=== PATIENT | male | born 1975 | race African-American/Black ===

== ENCOUNTER → 2018-04-12 12:00 | Outpatient (CLI) | payer OTHER, SELFPAY ==
--- NOTE | 2018-04-12 12:09 | XR_ITS ---
XR foot RT min 3V HISTORY: Generalized right foot pain ITS.REASON: RT FOT PAIN ORDERING PHYSICIAN: Silvino Valencia PATIENT AGE: 42 years COMPARISON: None FINDINGS: No fracture or dislocation. No lytic or blastic change. There is normal mineralization.. The joint spaces are well-preserved. No significant degenerative/arthritic changes. No erosive changes evident. IMPRESSION: Negative, no acute finding
== END ==
PROVIDERS: PCP Family Medicine; Visit Provider Orthopaedic Surgery Adult Reconstructive Orthopaedic Surgery
DX: M79.671 Pain in right foot (principal)
CPT/HCPCS: 73630

== ENCOUNTER → 2020-02-04 11:24 | Outpatient (CLI) | payer BC, SELFPAY ==
[2020-02-05 14:14] LABS: Covid-19 Nasal PCR Sendout Lex NOT DETECTED
== END ==
PROVIDERS: Visit Provider Urology
DX: Z03.818 Encounter for observation for suspected exposure to other biological agents ruled out (principal)
CPT/HCPCS: U0004

== ENCOUNTER 2020-02-06 07:56 | Day surgery (SDC) | payer BC, SELFPAY ==
--- NOTE | 2020-02-03 09:16 | SUR.PREOP ---
02/03/2020 @ 0916--PHONE CALL MADE TO PATIENT. PATIENT UNDERSTANDS THAT LAB WORK AND COVID TESTING NEEDS TO BE COMPLETED @ 1100 ON 02/04/2020. PATIENT UNDERSTANDS IF LAB WORK AND COVID-19 TESTS ARE NOT COMPLETED BY 12PM ON THAT DATE, THE SURGERY SCHEDULED WILL BE CANCELLED AND RESCHEDULED FOR ANOTHER TIME.
[2020-02-06 08:31] VITALS: BMI 28.3
[2020-02-06 08:32] VITALS: BP 120/71; PULSE 77; RESP 20; TEMP 36.5; O2SAT 95
[2020-02-06 10:15] VITALS: BP 134/96; PULSE 74; RESP 18; TEMP 36.4; O2SAT 100
--- NOTE | 2020-02-06 15:42 | HMH.OPNOTE ---
Date of procedure: 02/06/20 Pre-op Diagnosis:: Sterilization Post-op Diagnosis:: Sterilization Procedure performed:: Vasectomy Surgeon:: Alex Becerril MD Anesthesia: local Estimated blood loss (mL): 3 Clinical Note:: 44-year-old white male recently seen for vasectomy consultation in the office presents for the procedure today. Operative findings:: Normal testicular exam and uneventful procedure. Operative note:: Patient taken to the operating room after informed consent was obtained. On the stretcher he was prepped and draped in the standard surgical fashion testicular and scrotal examination were normal. The left vas was grasped and brought up to the midline raphae. Local anesthetic was infiltrated under the skin and around the left vas. Incision was then made in the skin and the basal sheath was grasped with a tenaculum and brought up through the incision. The basal sheath was then incised and the vas proper was brought through the sheath and the adventitia and vascular structures were dissected away from the vas. One clip was placed distally and 2 clips proximally on the vas. A 1 cm segment of the vas was then excised and the basal lumen was cauterized with the pen cautery. Hemostasis achieved of the surrounding structures including the area of the basal artery. Left vas was dropped back into the left hemiscrotum the right vas was brought up to the same incision and local anesthetic was placed in and around the right vas. The right vas was grasped with the tenaculum and brought up through the incision. The basal sheath was incised and the vas proper was dissected away from the surrounding tissue. As was clipped doubly on the proximal side and once on the distal side. A 1 cm segment was excised and the ends of the vasa lumen were cauterized and hemostasis achieved. The right vas was dropped back into the right hemiscrotum and a 3-0 chromic was placed into the skin in a horizontal mattress fashion. Sterile dressing applied as well as a jockstrap. The patient tolerated procedure well there are no complications. Condition: stable Disposition: same day Specimens:: None Complications:: None
== END 2020-02-06 10:15 | disposition home or self-care (01) ==
LOC: OUTP 07:57
PROVIDERS: PCP Family Medicine; Visit Provider Urology
PROC: (CPT 55250; principal; 2020-02-06 09:30)
DX: Z30.2 Encounter for sterilization (principal)
CPT/HCPCS: 55250

== ENCOUNTER 2020-06-22 12:30 | Emergency (ER) | payer BC, SELFPAY ==
[2020-06-22 13:40] VITALS: BP 146/88; PULSE 80; RESP 20; TEMP 36.8; O2SAT 100; BMI 26.6
--- NOTE | 2020-06-22 13:47 | HMH.EDUTC ---
[facility] [place] Disposition Clinical Impression: Encounter for laboratory testing for COVID-19 virus Disposition: Home, Self-Care Condition on Discharge: Good Instructions: Preventing the Spread of Coronavirus Discharge Instructions Additional Instructions: You was tested for today for COVID19 your test result should be back tomorrow or , you may call back in the evening tomorrow or evening to see if your test results are back and the result You was given a handout with instructions for Self Quarantine and Self isolation for while you wait on test results and what to do if they are positive Return if needed No work until negative COVID test Referrals: Heriberto Ruiz MD [Primary Care Provider] - As needed Forms: Work/School Release Time of Disposition: 13:50 Medical Decision Making - Dandy Inquiry Pt receiving controlled substance: No Dandy was queried for this patient: No Vital Signs: 06/22/20 13:40 Temperature 98.2 F Temperature Source Oral Pulse Rate [Right Brachial] 80 Respiratory Rate 20 Blood Pressure [Right Arm] 146/88 H Blood Pressure Mean [Right Arm] 107 Blood Pressure Source [Right Arm] Automatic Cuff Blood Pressure Position [Right Arm] Sitting 02 Sat by Pulse Oximetry 100 Oxygen Delivery Method Room Air [facility] [place] HPI - General Stated complaint: exposed to covid Time Seen by Provider: 06/22/20 13:48 Mode of Arrival: Ambulatory Source of Information: Patient Limitations: No Limitations Description of Symptoms (Recalled from Triage Doc. by RN): PATIENT NEEDING COVID TEST. EXPOSED TO COWORKER WHO TESTED POSITIVE YESTERDAY, DENIES SYMPTOMS HEENT Symptoms (Recalled from RN notes): No Resp Symptoms (Recalled from RN notes): No Skin Symptoms (Recalled from RN notes): No MS Symptoms (Recalled from RN notes): No Functional Status (Recalled from RN notes): WNL - History of Present Illness Provider Complaint: Patient states that he was sent from his work place to get tested for COVID due to recent exposure to another employee that was sick last week and tested postive for COVID yesterday States that he has not had any symptoms - Related Data Home Medications Medication Instructions Recorded Confirmed No Known Home Medications 01/16/20 02/06/20 Allergies Allergy/AdvReac Type Severity Reaction Status Date / Time No Known Allergies Allergy Verified 06/22/20 13:42 - Worker's Comp Is this a Worker's Comp case?: No [facility] History - Hepatitis A Screen Drug use history?: No High risk sexual behaviors?: No History of sexually transmitted infection?: No Currently employed?: No Childcare worker?: No Do you have indoor plumbing?: Yes Do you have electricity?: Yes Attestation statement:: This patient has been screened for Hepatitis A risk factors. Medical History: Denies:: Cancer, Diabetes Mellitus Type 1, Diabetes Mellitus Type 2, Internal Pacemaker, MRSA, Seizures Laterality Cases: Right: Other Other Surgeries: Yes: No Previous Surgery. No: Pacemaker Amputation: No Fractures: No Comment: cyst removed from wrist and cyst removed from ear - Social History Smoking Status: Current every day smoker Tobacco Type: cigarettes # Packs/Day (cigarettes): 1 #Yrs smoked (if former smoker): 15 Alcohol Intake: never Alcohol Intake Frequency:: holidays/special occasions only Substance Use Type: marijuana Occupational Status: other Housing: house Family Hx:: No significant family history ROS Obtained: Yes All systems reviewed & no additional complaints, Yes Systems reviewed as appropriate & no additional complaints - Constitutional Constitutional: Reports system reviewed and no additional complaints, except as docu, Denies body ache, Denies chills, Denies fever(s), Denies headache(s) - ENT Ears, Nose, Mouth, and Throat: Denies sinus pressure, Denies sore throat - Cardiovascular Cardiovascular: Reports system reviewed and no additional complaints, except as docu - Respiratory Respir
[2020-06-22 13:58] VITALS: BP 146/88; PULSE 80; RESP 20; TEMP 36.8; O2SAT 100
[2020-06-23 16:22] LABS: Covid-19 Nasal PCR Sendout Lex Not Detected
== END 2020-06-22 14:00 | disposition home or self-care (01) ==
PROVIDERS: Emergency Provider Nurse Practitioner; PCP Family Medicine
DX: Z20.828 Contact with and (suspected) exposure to other viral communicable diseases (principal)
CPT/HCPCS: 99201; U0004

== ENCOUNTER → 2020-07-14 12:06 | Outpatient (CLI) | payer BC, SELFPAY | PROVIDERS: PCP Family Medicine; Visit Provider Family Medicine | DX: Z03.818 Encounter for observation for suspected exposure to other biological agents ruled out (principal) | CPT/HCPCS: U0003 ==

== ENCOUNTER → 2020-10-04 15:38 | Outpatient (CLI) | payer BC, SELFPAY ==
--- NOTE | 2020-10-04 | XR_ITS ---
PROCEDURE: XR CHEST PORTABLE CLINICAL HISTORY: Cough and sore throat, Covid19 testing COMPARISON: No exams were available for comparison FINDINGS: The cardiomediastinal silhouette and pulmonary vascularity are within normal limits. The lungs are clear without infiltrates, suspicious nodules, or pleural effusions. No acute bony abnormalities. 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 IMPRESSION: No acute findings. Dictated by: Rhys Mars MD 10/04/2020 16:08 Rhys Mars MD in [place] 10/04/2020 16:08
== END ==
PROVIDERS: PCP Family Medicine; Visit Provider Family Medicine
DX: Z20.822 Contact with and (suspected) exposure to COVID-19 (principal); U07.1 COVID-19; R05 Cough; R53.81 Other malaise
CPT/HCPCS: 71045; U0003

== ENCOUNTER 2021-06-19 18:59 | Emergency (ER) | payer BC, SELFPAY ==
[2021-06-19 20:00] VITALS: BP 126/79; PULSE 92; RESP 18; TEMP 36.9; O2SAT 96; BMI 26.6
--- NOTE | 2021-06-19 20:08 | XR_ITS ---
PROCEDURE INFORMATION: Exam: XR Right Shoulder Exam date and time: 06/19/2021 8:08 PM Age: 45 years old Clinical indication: Pain; Shoulder; Right; Additional info: Pain no known recent trauma TECHNIQUE: Imaging protocol: XR Right shoulder. Views: 2 or more views. COMPARISON: CR XR CHEST PORTABLE 10/04/2020 4:11 PM FINDINGS: Bones/joints: [id number] degenerative changes at the AC joint with an inferiorly projecting osteophyte. Soft tissues: Normal. Question loose body projecting over scapula. IMPRESSION: AC degenerative changes as above
--- NOTE | 2021-06-19 20:30 | HMH.EDUTC ---
[facility] [place] Disposition Clinical Impression: Tendinopathy of right shoulder Right shoulder pain Qualifiers: Chronicity: acute Qualified Code(s): M25.511 - Pain in right shoulder Disposition: Home, Self-Care Condition on Discharge: Good Instructions: Shoulder Tendinopathy, DI for Shoulder Pain Additional Instructions: Rest the extremity, apply ice for 15 minutes as tolerated three or four times per day, Wear the aicha wrap for compression, Take ibuprofen for pain. I sent in a prescription to your pharmacy. Follow up with Dr. Devi (orthopedics). Sometimes there can be fractures that don't show up well on the first set of x-rays. So, you should follow up if you continue to have symptoms. I put in a referral but you need to call his office and schedule an appointment. Follow up with your regular doctor. GO TO THE ER FOR ANY WORSENING SYMPTOMS Prescriptions: Cyclobenzaprine HCl [Cyclobenzaprine 10mg Tab] 10 mg PO BIDP PRN #20 tab PRN Reason: Muscle Spasm Transmission Status: Received by [facility] methylPREDNISolone [Medrol] 4 mg PO DIRECTED 6 Days #21 packet Transmission Status: Received by [facility] Referrals: Heriberto Ruiz MD [Primary Care Provider] - Ronny Devi MD [Staff Physician] - Time of Disposition: 20:40 Medical Decision Making - Medical Records Medical records reviewed: No: I reviewed the patient's medical records. - Dandy Inquiry Pt receiving controlled substance: No Vital Signs: 06/19/21 20:00 06/19/21 20:59 Temperature 98.5 F 98.5 F Temperature Source Oral Pulse Rate 92 H Pulse Rate [Right Brachial] 92 H Respiratory Rate 18 18 Blood Pressure 126/79 Blood Pressure [Right Arm] 126/79 Blood Pressure Mean [Right Arm] 94 Blood Pressure Source [Right Arm] Automatic Cuff Blood Pressure Position [Right Arm] Sitting 02 Sat by Pulse Oximetry 96 Oxygen Delivery Method Room Air Orders (Tests/Meds): ED MEDICATIONS Discontinued Medications Generic Name Dose Route Start Last Admin Trade Name Freq PRN Reason Stop Dose Admin Ketorolac Tromethamine 60 mg 06/19/21 20:40 06/19/21 20:45 Ketorolac 60mg/2ml Vial IM 06/19/21 20:41 60 mg ONCE ONE Administration Methylprednisolone Sodium Succinate 125 mg 06/19/21 20:40 06/19/21 20:45 Methylprednisolone Sod Succ 125mg Vial IM 06/19/21 20:41 125 mg ONCE ONE Administration ORDERS Category Date Time Status Shoulder XR right miminum 2 views [XR shoulder RT min Exams 06/19/21 20:08 Taken 2V] Stat - Radiology Data #1 Image(s): Shoulder Image Reviewed: Yes I reviewed the patient's radiology image, Yes I have reviewed radiologist's interpretation Preliminary Findings: No Fracture Seen [facility] [place] HPI - General Stated complaint: R shoulder pain no accident Time Seen by Provider: 06/19/21 20:31 - History of Present Illness Provider Complaint: He states that he has had right shoulder pain flare ups off and on for the past several years. He denies any recent injury. He did injure his shoulder several years ago, but it seemed like it got ok, then he started having these flare ups. Raising the arm over his head makes it worse. He also has numbness and tingling down his arm at times when his pain is very bad. - Related Data Previous Rx's Medication Instructions Recorded Cyclobenzaprine HCl 10 mg PO BIDP PRN #20 tab 06/19/21 [Cyclobenzaprine 10mg Tab] methylPREDNISolone [Medrol] 4 mg PO DIRECTED 6 Days #21 06/19/21 packet Allergies Allergy/AdvReac Type Severity Reaction Status Date / Time No Known Allergies Allergy Verified 06/22/20 13:42 [facility] History - Hepatitis A Screen Attestation statement:: This patient has been screened for Hepatitis A risk factors. I have reviewed the patient's past medical history: Yes Medical History: Denies:: Cancer, Diabetes Mellitus Type 1, Diabetes Mellitus Type 2, Internal Pacemaker, MRSA, Seizures Laterality C
[2021-06-19 20:59] VITALS: BP 126/79; PULSE 92; RESP 18; TEMP 36.9; O2SAT 96
== END 2021-06-19 21:00 | disposition home or self-care (01) ==
PROVIDERS: Emergency Provider Nurse Practitioner Family; PCP Family Medicine
DX: M77.8 Other enthesopathies, not elsewhere classified (principal)
CPT/HCPCS: 73030; 96372; 99202; G0463

== ENCOUNTER 2021-07-06 10:05 | Outpatient (RCR) | payer BC, SELFPAY ==
--- NOTE | 2021-07-06 11:58 | HMH.OTOPEV ---
OT Inpatient Evaluation Rehab OT Outpatient Eval Start: 07/06/21 11:14 Freq: Status: Active Protocol: Document 07/06/21 11:15 USHAFRANCHESCA (Rec: 07/06/21 11:25 KHURRAM [id number]) Electronically Signed By Kasandra Hernandez OT 07/06/21 11:15 Outpatient Therapy Subjective History Subjective History 45 year old male referred to skilled OP OT services for R shoulder tendiopathy. Patient verablize having pain for the past two years with pain getting worse. Patient stated to have occasional tingling and numbness in all digits. R shoulder pain limits work performance and leisure task of sports on daily basis. Patient currently on light duty work performance at this time to decrease pain levels. X-xay completed Chief Complaint Pain,Weakness Symptom Type Ache,Throb,Sharp Symptoms Relieved By Ice,OTC Meds Symptoms Aggravated By Physical Activity Prior Functional Limitations None Current Functional Limitations Reaching,Lifting Level of pain today (0-10) 5 Pain scale - at its best (0-10) 5 Pain scale - at its worst (0-10) 9 Shoulder/Elbow Eval Shoulder Objective Measurements Shoulder ROM Right Shoulder Abduction Active Range of 115 Motion (degrees) Shoulder Flexion Active Range of Motion 100 (degrees) Query Text: Shoulder External Rotation Active Range 30 of Motion (degrees) Shoulder Internal Rotation Active Range 25 of Motion (degrees) pain with active ROM shoulder exam right standard Shoulder MMT Shoulder Abduction Strength Grade 3- Fair- Shoulder Extension Strength Grade 3- Fair- Shoulder Flexion Strength Grade 3- Fair- Shoulder Horizontal Abduction Strength 3- Fair- Grade Infraspinatus/Teres Minor Strength Grade 3- Fair- Shoulder External Rotation Strength 3- Fair- Grade Shoulder Internal Rotation Strength 3- Fair- Grade Shoulder Special Tests impingement sign present shoulder exam right standard Shoulder Empty Can (Supraspinatus) Test Positive Right Shoulder Garcia-Dewey Impingement Positive Right Test Shoulder Neer Impingement Test Positive Right Elbow Objective Measurements OT Outpatient Assessment Impairments Problems/Impairments Impaired Range of Motion,
== END 2021-07-06 10:10 | disposition home or self-care (01) ==
LOC: OT 10:05
PROVIDERS: PCP Family Medicine; Visit Provider Family Medicine
DX: M67.911 Unspecified disorder of synovium and tendon, right shoulder (principal)
CPT/HCPCS: 97165

== ENCOUNTER → 2021-07-27 16:50 | Outpatient (CLI) | payer BC, SELFPAY ==
--- NOTE | 2021-07-27 16:50 | MR_ITS ---
PROCEDURE INFORMATION: Exam: MR Right Upper Extremity Joint Without Contrast; Shoulder Exam date and time: 07/27/2021 4:50 PM Age: 45 years old Clinical indication: Pain; Shoulder; Right; Patient HX: Evaluate for a rotator cuff tear TECHNIQUE: Imaging protocol: MR of the Right upper extremity without contrast. Exam focused on the shoulder. COMPARISON: CR XR SHOULDER RT MIN 2V 06/19/2021 8:04 PM FINDINGS: Bones and cartilage: Motion artifact limits this study. 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 Cystic and edematous change within the bone marrow of the acromion process and lateral aspect of the clavicle, likely contributed by arthropathy. A minimal effusion is noted within this joint. Joint spaces: Small glenohumeral joint effusion. A subcentimeter suggested hypointense loose body is suggested within fluid in the subscapularis recess. Glenoid labrum: There is a small linear suggested tear of the posterior aspect of the labrum, as visualized on series 3, image 14. Labral tear cannot be excluded. Bursae: Fluid is noted within the subcoracoid bursa, with a 1.1 cm hypointense loose body. 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 Minimal fluid within the subdeltoid/subacromial bursa. Supraspinatus tendon: See below. Infraspinatus tendon: Tendinosis and partial tears visualized of the supraspinatus and infraspinatus tendons. Subscapularis tendon: No evidence of tear. Teres minor tendon: No evidence of tear. Tendon of biceps brachii: Increased fluid within the bicipital tendon sheath, consistent with tenosynovitis. Glenohumeral ligaments: No evidence of tear of the inferior glenohumeral ligament. Muscles: No visualized acute abnormality. Soft tissues: Unremarkable. IMPRESSION: 1. Tendinosis and partial tears visualized of the supraspinatus and infraspinatus tendons. 2. Increased fluid within the bicipital tendon sheath, consistent with tenosynovitis. 3. 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 Cystic and edematous change within the bone marrow of the acromion process and lateral aspect of the clavicle, likely contributed by arthropathy. 4. Fluid is noted within the subcoracoid bursa, with a 1.1 cm hypointense loose body. 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 5. Small glenohumeral joint effusion. 6. Suggested labral tear(s). 7. Minimal fluid within the subdeltoid/subacromial bursa. 8. Additional findings described above.
== END ==
PROVIDERS: PCP Family Medicine; Visit Provider Orthopaedic Surgery
DX: M25.511 Pain in right shoulder (principal); G89.29 Other chronic pain
CPT/HCPCS: 73221

== ENCOUNTER → 2021-11-02 16:58 | Outpatient (CLI) | payer BC, SELFPAY | PROVIDERS: PCP Family Medicine; Visit Provider Nurse Practitioner | DX: U07.1 COVID-19 (principal) | CPT/HCPCS: C9803; U0003; U0005 ==

== ENCOUNTER 2021-12-12 17:15 | Emergency (ER) | payer BC, SELFPAY ==
[2021-12-12 17:15] VITALS: BP 120/94; PULSE 93; RESP 18; TEMP 36.8; O2SAT 100; BMI 28.8
--- NOTE | 2021-12-12 17:32 | PC.NURSE ---
ED MD at
--- NOTE | 2021-12-12 17:43 | HMH.EDGENADL ---
ED Disposition Clinical Impression: Left medial knee pain Disposition: Home, Self-Care Condition on Discharge: Good Additional Instructions: Please take naproxen twice a day for pain, you can also apply topical ointment to the knee for pain, please get a knee brace in order to help with knee stability. To the ED with any new or worsening symptoms. Prescriptions: Naproxen [Naproxen 500mg tab] 500 mg PO BID #20 tab Transmission Status: Pending to [facility] Referrals: Tessa Lewis APRN [Primary Care Provider] - - Critical Care Critical Care Time: No Attestation: On , the high probability of a clinically significant, sudden or life threatening deterioration of the following system(s) required my full and direct attention, intervention and personal management. The time I documented below is in addition to time spent performing reported procedures but includes the following listed in this critical care notation. Medical Decision Making - Medical Records Medical records reviewed: Yes: I reviewed the patient's medical records. - Dandy Inquiry Pt receiving controlled substance: No Vital Signs: 12/12/21 17:15 Temperature 98.3 F Temperature Source Oral Pulse Rate [Right Radial] 93 H Respiratory Rate 18 Blood Pressure [Left Arm] 120/94 H Blood Pressure Mean [Left Arm] 102 Blood Pressure Source [Left Arm] Automatic Cuff Blood Pressure Position [Left Arm] Sitting 02 Sat by Pulse Oximetry 100 Oxygen Delivery Method Room Air Orders (Tests/Meds): ED MEDICATIONS Discontinued Medications Generic Name Dose Route Start Last Admin Trade Name Freq PRN Reason Stop Dose Admin Ketorolac Tromethamine 30 mg 12/12/21 17:41 Ketorolac 30mg/Ml Vial IM 12/12/21 17:42 ONCE ONE Ketorolac Tromethamine 30 mg 12/12/21 17:40 Ketorolac 30mg/Ml Vial IV 12/12/21 17:41 ONCE ONE Medical Decision Narrative: Patient is a 46-year-old male presents the ED today for evaluation of left-sided knee pain, patient is well-appearing on initial evaluation, no acute distress, vital signs within normal limits and stable, differential patient's knee exam is broad including meniscal injury, medial ligament tear, ACL tear, patellar injury, no obvious deformity to the knee on exam, no instability of the knee joint and he is able to bear weight, given this and the acute onset today with standing up this is unlikely to be a septic knee, and I have discussed the symptoms with patient the patient for outpatient management, we do not need to obtain an x-ray at this time as there is no traumatic mechanism of injury, I will refer patient to Dr. Lerma's clinic who does sports medicine injuries, patient be able to see them in the outpatient setting, we will give him 30 mg of IM Toradol for inflammation, I discussed rest ice compression elevation therapy and will prescribe 500 mg of oral naproxen twice a day for patient taken over anti-inflammatory management. General Adult HPI - General Chief complaint: PAIN Stated complaint: left knee pain Time Seen by Provider: 12/12/21 17:20 Mode of Arrival: Ambulatory Limitations: No Limitations Description of Symptoms (Recalled from ER Triage Doc. by RN): Pt c/o left knee pain. States that he felt a pop this AM and it has been throbbing since. - History of Present Illness HPI narrative: Patient is a 46-year-old male patient who presents the ED today for further evaluation of left knee pain, states that this knee has been hurting since earlier today when he stood up and felt a pop in the medial aspect of the knee, states that he has not noticed much swelling of the knee but states that he does think it is more swollen than the right side. Patient states he has not had any fevers, no other pain radiating down the leg, but states that the knee is hurting a lot more in the last 30 minutes or so. Patient has had multiple prior knee injuries from playing football in the
[2021-12-12 17:55] VITALS: BP 120/94; PULSE 93; RESP 16; TEMP 36.7; O2SAT 100
== END 2021-12-12 17:55 | disposition home or self-care (01) ==
LOC: ER 18:00
PROVIDERS: Emergency Provider Student in an Organized Health Care Education/Training Program; PCP Nurse Practitioner Family
DX: M25.562 Pain in left knee (principal); F17.210 Nicotine dependence, cigarettes, uncomplicated
CPT/HCPCS: 96372; 99283

== ENCOUNTER 2021-12-23 08:04 | Day surgery (SDC) | payer BC, SELFPAY ==
[2021-11-02 12:20] VITALS: BMI 28.3
[2021-12-20 09:31] VITALS: BMI 28.3
[2021-12-23 08:23] VITALS: BP 154/93; PULSE 85; RESP 18; TEMP 36.2; O2SAT 99
--- NOTE | 2021-12-23 09:22 | HMH.ANESCL ---
[facility] Anesthesia Checklist - Patient Identification Patient Identification: Arm Band, Guardian - Structural Data Admitted From: Home Planned Operative Procedure/s: Colonoscopy Consent for Planned Operative Procedure(s) Verified: Yes Verified Documents: Surgical Consent - NPO Status Verified Time NPO: 00:00 - Airway Assessment C-Spine Mobility Assessed: Yes TMJ Mobility Assessed: Yes Dentition: Good Dentition - Neurological Assessment Level of Consciousness: Awake, Alert, Appropriate - Anesthesia Plan Anesthesia Risk discussed: Yes ASA Class: II Anesthesia Type: MAC [facility] History I have reviewed the patient's past medical history: Yes Medical History: Denies:: Cancer, Diabetes Mellitus Type 1, Diabetes Mellitus Type 2, Internal Pacemaker, MRSA, Seizures *Have you ever received a pneumonia vaccine?: No *Have you received a flu vaccine this season?: No Anesthesia experience/problems:: none Laterality Cases: Right: Other Other Surgeries: Yes: No Previous Surgery. No: Pacemaker Amputation: No Fractures: No - *Social History Last grade of school completed: Some college Smoking Status: Current every day smoker Tobacco Type: cigarettes # Packs/Day (cigarettes): 1 #Yrs smoked (if former smoker): 15 Alcohol Intake: current Alcohol Intake Frequency:: a few times a week Substance Use Type: marijuana *Occupational Status:: employed Housing: house Household Members: family *Travel in the last 8 weeks: None Family Hx:: No significant family history
[2021-12-23 09:32] VITALS: O2SAT 99
--- NOTE | 2021-12-23 10:04 | HMH.SCOPE ---
- Procedure: Date: 12/23/21 Patient Date of :: 1975 Procedure Performed:: Total colonoscopy to terminal ileum with polypectomy by biopsy and snare Indications:: Patient is a pleasant 46-year-old male. He is referred for screening colonoscopy. He did undergo previous colonoscopy about 5 or 6 years ago after a bout of colitis. Performing Provider:: James Miller MD Referring Provider:: Sanjuana Lewis Sedation:: MAC sedation Procedure:: Patient was taken to endoscopy procedure room. He was positioned in lateral decubitus position. Adequate intravenous sedation was achieved with anesthesia titration of propofol. Variable stiffness Olympus colonoscope was inserted via the anus. It was advanced to the cecum without difficulty. Colonic preparation was good. Ileocecal valve and appendiceal orifice were clearly identified. Colonoscope was advanced a short distance into the terminal ileum which appeared grossly normal. Colonoscope was slowly withdrawn through the colon with careful surveillance. In the sigmoid colon there was an extremely tiny diminutive polyp removed with cold biopsy forceps. At the rectosigmoid region there was a small hyperplastic appearing polyp removed with cold snare. He did have some rare sigmoid diverticulosis. Retroflexion within the rectum revealed nonpathologic internal hemorrhoids. Colonoscope was withdrawn. Findings:: Subtle hyperplastic appearing polyps as noted above Rare sigmoid diverticulosis Recommendations:: Repeat colonoscopy 5 to 10 years pending pathology Complications:: None immediately apparent Estimated blood obtained (mL): 1
[2021-12-23 10:05] VITALS: BP 105/64; PULSE 71; RESP 18; TEMP 36.1; O2SAT 94
[2021-12-23 10:15] VITALS: BP 136/92; PULSE 78; RESP 18; TEMP 36.1; O2SAT 99
[2021-12-23 10:25] VITALS: BP 122/77; PULSE 66; RESP 18; TEMP 36.1; O2SAT 100
[2021-12-23 10:35] VITALS: BP 129/85; PULSE 70; RESP 18; TEMP 36.1; O2SAT 100
== END 2021-12-23 10:35 | disposition home or self-care (01) ==
LOC: OUTP 08:05
PROVIDERS: PCP Nurse Practitioner Family; Visit Provider Surgery
PROC: 0DJD8ZZ Inspection of Lower Intestinal Tract, Via Natural or Artificial Opening Endoscopic (ICD-10-PCS; CPT 45385; principal; 2021-12-23 09:30)
DX: Z12.11 Encounter for screening for malignant neoplasm of colon (principal); K63.5 Polyp of colon; K57.30 Diverticulosis of large intestine without perforation or abscess without bleeding; Z72.0 Tobacco use; F12.90 Cannabis use, unspecified, uncomplicated
CPT/HCPCS: 45385

== ENCOUNTER → 2022-03-28 13:42 | Outpatient (CLI) | payer BC, SELFPAY ==
--- NOTE | 2022-03-28 13:46 | XR_ITS ---
FINAL REPORT CLINICAL HISTORY: shoulder pain COMPARISON: 06/19/2021 FINDINGS: RIGHT SHOULDER Three views were obtained. There is no acute fracture or dislocation. There is mild acromioclavicular and glenohumeral joint degenerative change. No soft tissue abnormality is identified. IMPRESSION: Mild degenerative changes without acute process. Reviewed, Interpreted and Dictated by James Glover III, MD Transcribed by Inés Corbett Authenticated and [facility]
== END ==
LOC: RAD 13:43
PROVIDERS: PCP Nurse Practitioner Family; Visit Provider Orthopaedic Surgery
DX: M25.511 Pain in right shoulder (principal)
CPT/HCPCS: 73030

== ENCOUNTER → 2022-04-03 13:01 | Outpatient (CLI) | payer BC, SELFPAY | PROVIDERS: PCP Nurse Practitioner Family; Visit Provider Orthopaedic Surgery | DX: M25.511 Pain in right shoulder (principal) ==

== ENCOUNTER → 2022-04-17 14:05 | Outpatient (CLI) | payer BC, SELFPAY ==
--- NOTE | 2022-04-17 14:05 | MR_ITS ---
FINAL REPORT TECHNIQUE: Multiplanar and multisequence imaging of the right shoulder was obtained without contrast. CLINICAL HISTORY: Shoulder pain. WEAKNESS IN ARM. LIMITED ROM. SYMPTOMS XYEARS. NO RECENT INJURY OR TRAUMA. FINDINGS: Bones and joints: There is no acute fracture, edema, or pathologic marrow replacement. Acromioclavicular joint degenerative disease is present and there is osteophytosis which narrows the supraspinatus outlet. Rotator cuff: There is a full-thickness supraspinatus tendon tear that extends to the anterior infraspinatus tendon. The more posterior infraspinatus fibers are intact. No biceps tendon dislocation is present. There is no fatty atrophy of the rotator cuff muscles. Labrum: There is a SLAP 2 tear of the superior labrum. The remainder of the labrum is intact The glenohumeral ligaments appear intact. The biceps tendon is within normal limits. No biceps tendon tear is identified. Other: There is a small joint effusion. There is a loose body in the subcoracoid bursa measuring 15 mm. There is a small loose body in the inferior joint measuring 5 mm. Remaining soft tissues are within normal limits. IMPRESSION: Full-thickness supraspinatus tear extending to the anterior infraspinatus tendon. Slap type 2 tear of the superior labrum. Degenerative joint disease. Loose bodies. Reviewed, Interpreted and Dictated by Bernie Mims MD Transcribed by Anil Cottrell Authenticated and [facility]
== END ==
PROVIDERS: PCP Nurse Practitioner Family; Visit Provider Orthopaedic Surgery
DX: M25.511 Pain in right shoulder (principal)
CPT/HCPCS: 73221

== ENCOUNTER 2022-05-03 09:07 | Emergency (ER) | payer BC, SELFPAY ==
[2022-05-03 09:40] VITALS: BP 151/91; PULSE 84; RESP 18; TEMP 36.7; O2SAT 98; BMI 25.9
--- NOTE | 2022-05-03 09:55 | HMH.EDUTC ---
[facility] [place] Clinical Impression: Viral upper respiratory tract infection with cough Disposition: Home, Self-Care Condition on Discharge: Good Instructions: Cough, Sore Throat, DI for COVID-19 (Suspected or Confirmed ), Preventing the Spread of Coronavirus Discharge Instructions Additional Instructions: *Monitor Temp, Over the counter Motrin or Tylenol as directed/as needed Tylenol every 4 hours and Motrin every 6 hours (as long as your family doctor has told you that you can take it) for fever or pain. and straight to ER if unable to lower temp less than 101.0 after medication given *Warm salt water gargles may help to soothe the throat *Throat Lozenges *Warm fluids like tea with honey may help to soothe the throat *Sleep elevated *Humidifier/Vaporizer Your throat swab was sent for culture. Those results are typically sent to your primary care. Be sure to follow up in 2-3 days with your family doctor/primary care physician if no improvement so they can review those result and treat if necessary. If you don?t have a primary care doctor, I recommend you get one but in the mean time, you will have to return to a walk in clinic Follow up IMMEDIATELY for new or worsening symptoms or no Noticeable improvement over the next 48-72 hours. 911 for difficulty breathing or swallowing You were tested for today for COVID19 your test result should be back in the next 24-48 hours, you may check your result on the [facility] My Health Portal Make sure to take your Vitamins Vit. C Vit D and Zinc if you can take them Referrals: Tessa Lewis APRN [Primary Care Provider] - As needed Forms: Work/School Release Time of Disposition: 10:05 Medical Decision Making - Dandy Inquiry Pt receiving controlled substance: No Dandy was queried for this patient: No Vital Signs: 05/03/22 09:40 Temperature 98.0 F Temperature Source Oral Pulse Rate [Left Brachial] 84 Respiratory Rate 18 Blood Pressure [Left Arm] 151/91 H Blood Pressure Mean [Left Arm] 111 Blood Pressure Source [Left Arm] Automatic Cuff Blood Pressure Position [Left Arm] Sitting 02 Sat by Pulse Oximetry 98 Oxygen Delivery Method Room Air - Lab Data Lab results reviewed: Yes: I reviewed the patient's lab results. Orders (Tests/Meds): ORDERS Category Date Time Status Covid-19 Nasal PCR ([facility]) Routine Lab 05/03/22 09:38 Received [facility] [place] HPI - General Stated complaint: strep/covid test Time Seen by Provider: 05/03/22 09:55 Mode of Arrival: Ambulatory Source of Information: Patient Limitations: No Limitations Description of Symptoms (Recalled from Triage Doc. by RN): PATIENT C/O COUGH, SORE THROAT, CONGESTION AND BODY ACHES. REQUESTING STREP AND COVID TEST HEENT Symptoms (Recalled from RN notes): Yes Resp Symptoms (Recalled from RN notes): Yes Skin Symptoms (Recalled from RN notes): No MS Symptoms (Recalled from RN notes): No Functional Status (Recalled from RN notes): WNL - History of Present Illness Provider Complaint: Patient states that he started feeling bad yesterday with sore throat, cough and feeling achy all over States that today he was still not feeling well today he would come in and get tested for strep throat and COVID - Related Data Previous Rx's Medication Instructions Recorded hydrocodone 5 mg-acetaminophen 325 2 tab PO Q6H PRN #4 tab 04/06/22 mg tablet Allergies Allergy/AdvReac Type Severity Reaction Status Date / Time No Known Allergies Allergy Verified 03/28/22 15:00 - Worker's Comp Is this a Worker's Comp case?: No [facility] History - Hepatitis A Screen Attestation statement:: This patient has been screened for Hepatitis A risk factors. I have reviewed the patient's past medical history: Yes Medical History: Denies:: Cancer, Diabetes Mellitus Type 1, Diabetes Mellitus Type 2, Internal Pacemaker, MRSA, Seizures Laterality Cases: Right: Other Other Surgeries: Yes: No Previous Surgery, Colonoscopy. No: Pacemaker Am
[2022-05-03 09:59] LABS: UTC Strep Screen (Rapid) Negative (Negative)
[2022-05-03 10:01] VITALS: BP 151/91; PULSE 84; RESP 18; TEMP 36.7; O2SAT 98
== END 2022-05-03 10:14 | disposition home or self-care (01) ==
PROVIDERS: Emergency Provider Nurse Practitioner; PCP Nurse Practitioner Family
DX: J06.9 Acute upper respiratory infection, unspecified (principal); R05.9 Cough, unspecified; J02.9 Acute pharyngitis, unspecified; R09.81 Nasal congestion; M79.10 Myalgia, unspecified site; F17.210 Nicotine dependence, cigarettes, uncomplicated
CPT/HCPCS: 87880; 99212; C9803; G0463; U0003; U0005

== ENCOUNTER 2022-12-01 15:01 | Emergency (ER) | payer BC, SELFPAY ==
[2022-12-01 15:10] VITALS: BP 155/97; PULSE 112; RESP 20; TEMP 36.9; O2SAT 97; BMI 29.7
--- NOTE | 2022-12-01 15:17 | EXP.UTC ---
Discharge Plan Disposition Patient Disposition: Home, Self-Care Condition: Good Prescriptions Prescriptions: New promethazine-DM 6.25-15 mg/5 mL Syrup 5 ml PO Q6H PRN (Reason: Cough) Qty: 240 0RF benzonatate [benzonatate] 100 mg capsule 100 mg PO TIDP PRN (Reason: Cough) Qty: 30 0RF methylprednisolone 4 mg Tablets,Dose Pack 4 mg PO DIRECTED Qty: 21 0RF amoxicillin-pot clavulanate 875-125 mg Tablet 1 tab PO Q12H Qty: 20 0RF Referrals Follow up/Referrals: Tessa Lewis APRN [Primary Care Provider] - See instructions Activity Restrictions/Add. Instructions Additional Instructions/Restrictions: Drink plenty of fluids. Take tylenol or ibuprofen for pain or fever. Take the medications as directed. Follow up with your regular doctor. GO TO THE ER FOR ANY WORSENING SYMPTOMS Don't start the oral steroids until tomorrow, since you had the shot here today. The cough medication (promethazine dm) will make you drowsy, so don't drive or operate heavy machinery after taking it. The tessalon perles (benzonatate) should help your cough during the day. It should not make you drowsy. Clinical Impressions Clinical Impression: Bronchitis, Sinusitis Stand Alone Forms Stand Alone Forms: Work/School Release Instructions Patient Instructions: DI for Sinusitis, DI for Acute Bronchitis Discharge ED Provider: Stan Cheng [facility] [place] HPI General Stated complaint: Cough, congestion, sore throat, drainage Time Seen by Provider: 12/01/22 15:17 History of Present Illness Provider Complaint: He states that for the past 3 days he has had chest congestion and sinus congestion. Related Data Previous Rx's Medication Instructions Recorded amoxicillin 875 mg-potassium 1 tab PO Q12H #20 tabs 12/01/22 clavulanate 125 mg tablet benzonatate 100 mg capsule 100 mg PO TIDP PRN Cough #30 caps 12/01/22 methylprednisolone 4 mg tablets in 4 mg PO DIRECTED #21 tabs 12/01/22 a dose pack promethazine-DM 6.25 mg-15 mg/5 mL 5 ml PO Q6H PRN Cough #240 mL 12/01/22 oral syrup Allergies Allergy/AdvReac Type Severity Reaction Status Date / Time No Known Allergies Allergy Verified 12/01/22 15:18 [facility] Disclaimer: The information contained in this section may have been updated after the patient was seen, as this information can be updated by other users. 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 current occupational exposures/hazards: No caffeine: Yes ROS Obtained: Yes All systems reviewed & no additional complaints except as documented Constitutional Constitutional: Reports chills and Reports fever(s) Eyes Eyes: Denies eye discharge ENT Ears, Nose, Mouth, and Throat: Reports as per HPI Cardiovascular Cardiovascular: Denies chest pain Respiratory Respiratory: Denies chest congestion and Reports cough Gastrointestinal Gastrointestingal: Reports nausea; Denies abdominal pain, constipation, cramping, diarrhea or vomiting Musculoskeletal Musculoskeletal: Denies arthralgias Integumentary/Breasts Skin/Breast: Denies rash Neurologic Neurologic: Denies paresthesias Physical Exam General General appearance: alert and in no apparent distress Head Head exam: atraumatic, normocephalic and normal inspection Eye Eye exam: Present normal appearance, PERRL and EOMI ENT ENT exam: Present mucous membranes moist and normal external ear exam Expanded ENT Exam TM/Canal exam: Bilateral TM: erythema and bulging Nose exam: Absent sinus tenderness Mouth exam: Present normal external inspection; Absent drooling Teeth exam: Present normal inspecti
[2022-12-01 15:29] LABS: UTC Strep Screen (Rapid) Negative (Negative)
[2022-12-01 16:53] VITALS: BP 115/97; PULSE 112; RESP 20; TEMP 36.9; O2SAT 97
== END 2022-12-01 16:52 | disposition home or self-care (01) ==
PROVIDERS: Emergency Provider Nurse Practitioner Family; PCP Nurse Practitioner Family
DX: J20.9 Acute bronchitis, unspecified (principal); J01.90 Acute sinusitis, unspecified; R07.0 Pain in throat; F17.210 Nicotine dependence, cigarettes, uncomplicated
CPT/HCPCS: 96372; 87880; 99203; 99212; G0463; J0696

== ENCOUNTER 2023-02-22 20:02 | Emergency (ER) | payer BC, SELFPAY ==
[2023-02-22] VITALS (7 sets, daily range): BP systolic 121–141; BP diastolic 77–95; PULSE 74–97; RESP 16–18; TEMP 37; O2SAT 96–99; BMI 28.3
--- NOTE | 2023-02-22 20:09 | PC.NURSE ---
Pt unable to provide urine sample at this time
--- NOTE | 2023-02-22 20:20 | CT_ITS ---
PROCEDURE INFORMATION: Exam: CT Abdomen And Pelvis With Contrast Exam date and time: 02/22/2023 8:52 PM Age: 47 years old Clinical indication: Abdominal pain; Additional info: Llq pain TECHNIQUE: Imaging protocol: Computed tomography of the abdomen and pelvis with contrast. Radiation optimization: All CT scans at this facility use at least one of these dose optimization techniques: automated exposure control; mA and/or kV adjustment per patient size (includes targeted exams where dose is matched to clinical indication); or iterative reconstruction. Contrast material: ISOVUE; Contrast volume: 75 ml; Contrast route: IV; REPORTING DATA: Count of CT and Cardiac NM exams in prior 12 months: This patient has received 0 known CTs and 0 known cardiac nuclear medicine studies in the 12 months prior to the current study. COMPARISON: ABDPELW/O CT ABD PELVIS W/O CONTRAST 12/10/2016 4:24 AM FINDINGS: Lungs: Tiny linear opacity in the right lung base is stable, compatible with mild scarring. Lower lungs are otherwise clear. Liver: Normal. No mass. Gallbladder and bile ducts: Normal. No calcified stones. No ductal dilation. Pancreas: Normal. No ductal dilation. Spleen: Normal. No splenomegaly. Adrenal glands: Normal. No mass. Kidneys and ureters: Normal. No hydronephrosis. Stomach and bowel: Diffuse fatty hypertrophy of the colon wall again noted, suggesting prior history of colitis. Can not exclude mild active colitis. Small bowel loops appear unremarkable. No evidence of bowel obstruction. Appendix: The appendix is visualized and appears normal. Intraperitoneal space: Unremarkable. No free air. No significant fluid collection. Vasculature: Unremarkable. No abdominal aortic aneurysm. Lymph nodes: Unremarkable. No enlarged lymph nodes. Urinary bladder: Unremarkable as visualized. Reproductive: Unremarkable as visualized. Bones/joints: Mild degenerative changes noted throughout the lower spine. No acute fracture. Soft tissues: Unremarkable. IMPRESSION: Mild diffuse wall thickening of the colon which appear similar to previous, suggesting prior history of colitis. Can not exclude mild active colitis. Other incidental findings as noted
[2023-02-22 20:34] LABS: Basophils # 0.1 K/mm3 (0-0.2); Basophils % 0.4 % (0.1-2.0); Eosinophils # 0.3 K/mm3 (0.0-0.4); Eosinophils % 2.2 % (0.1-12.0); Hemoglobin 16.5 g/dL (14.1-18.0); Lymphocytes # 2.1 K/mm3 (0.7-4.5); Lymphocytes % 14.5 % (10-50); Mean Corpuscular HGB Conc 31.7 g/dL (31.8-35.4); Mean Corpuscular Hemoglobin 30.2 pg (27.0-31.2); Mean Corpuscular Volume 95.1 fl (80-94); Mean Platelet Volume 9.2 fl (7.4-10.4); Monocytes # 0.6 K/mm3 (0.1-1.0); Monocytes % 4.2 % (1.7-9.3); Neutrophils # 11.6 K/mm3 (1.8-7.8); Neutrophils % 78.8 % (37.0-80.0); Platelet Count 241 K/mm3 (142-424); Red Blood Count 5.47 M/mm3 (4.60-6.20); Red Cell Distribution Width 13.4 % (11.5-17.5); White Blood Count 14.7 K/mm3 (4.8-10.8)
[2023-02-22 20:39] LABS: Chloride 104 mmol/L (98-107)
[2023-02-22 20:40] LABS: Potassium 4.2 mmoL/L (3.5-5.1); Sodium 137 mmol/L (136-145)
[2023-02-22 20:40] LABS: Microscopic, Urine URINE MICROSCOPIC (MICROSCOPIC)
[2023-02-22 20:42] LABS: Appearance,Urine CLEAR (Clear); Blood, Urine Negative (Negative); Color,Urine YELLOW (Yellow); Glucose,Urine (UA) Negative (Negative); Ketones,Urine TRACE (Negative); Leukocyte Esterase,Urine Negative (Negative); Nitrate,Urine Negative (Negative); PH,Urine 5.5 (5.0-8.5); Protein,Urine TRACE (Negative); Specific Gravity, Urine >= 1.030 (1.005-1.030)
[2023-02-22 20:42] LABS: Alanine Aminotransferase 28 U/L (12-78); Amylase 217 U/L (30-110); Blood Urea Nitrogen 14 mg/dl (9-20); Creatinine Clearance Estimated 82 mL/min (50-200); Estimated Glomerular Filt Rate 65 ml/min (>60); GFR (African American) 78 ML/MIN (>60)
[2023-02-22 20:43] LABS: Albumin Level 4.5 g/dl (3.5-5.0); Albumin/Globulin Ratio 1.4 (1.1-1.8); Alkaline Phosphatase 82 U/L (38-126); Anion Gap 14.2 mEq/L (5-15); Aspartate Amino Transferase 35 U/L (17-59); Bilirubin,Total 0.4 mg/dl (0.2-1.3); Calcium 9.3 mg/dl (8.4-10.2); Carbon Dioxide 23 mmol/L (22.0-30.0); Globulin 3.3 g/dL (1.3-3.2); Glucose 113 mg/dl (74-100); Lipase 475 U/L (23-300); Total Protein,Serum 7.8 g/dl (6.3-8.2)
[2023-02-22 20:44] LABS: Bilirubin,Urine 1+ (Negative)
[2023-02-22 20:48] LABS: C-Reactive Protein 1.3 mg/L (0-4)
[2023-02-22 21:01] LABS: Bacteria,Urine Trace /lpf; Mucus,Urine Trace /lpf; RBC,Urine Occasional #/hpf (0-3); WBC,Urine Occasional #/hpf (0-3)
[2023-02-22 21:12] LABS: Erythrocyte Sedimentation Rate 1 mm/hr (0-15)
[2023-02-22 22:10] LABS: Lactic Acid 0.7 mmol/L (0.7-2.1)
--- NOTE | 2023-02-22 22:39 | PC.NURSE ---
Rounded on pt. No needs or complaints at this time.
--- NOTE | 2023-02-22 23:31 | HMH.EDABDPAI ---
Discharge Plan Disposition Patient Disposition: Home, Self-Care Chief Complaint: Abdominal Pain Prescriptions Prescriptions: No Action No Known Home Medications Referrals Follow up/Referrals: Tessa Lewis APRN [Primary Care Provider] - See instructions Clinical Impressions Clinical Impression: Abdominal pain Instructions Patient Instructions: DI for Acute Abdominal Pain Discharge ED Provider: Natalie ANAND)Tej Abdominal Pain HPI General Chief Complaint: Abdominal Pain Stated Complaint: abd pain Time Seen by Provider: 02/22/23 23:32 Mode of Arrival: Ambulatory Source of Information: Patient and Medical Record Limitations: No Limitations Description of Symptoms (Recalled from ER Triage Doc. by RN): pt reports he began having LLQ and L groin pain a few hours ago. pt reports the pain is 5/10 pt is not tender to palpation. pt denies n/v/d or urinary symptoms. pt states the pain is worse when he walks and is stretched out. pt reports the pain is not as bad when he has his L leg pulled up to his chest. History of Present Illness HPI narrative: pt with onset of lt sided abd pain which started tonight - no fever/rash /trauma - no known kidney stone - no testicular swelling MD complaint: abdominal pain Onset (ago): hour(s) Consistency: intermittent Location: LLQ Severity: moderate Quality: sharp Related Data Home Medications Medication Instructions Recorded Confirmed No Known Home Medications 02/22/23 02/22/23 Allergies Allergy/AdvReac Type Severity Reaction Status Date / Time No Known Allergies Allergy Verified 02/22/23 20:16 [facility] Disclaimer: The information contained in this section may have been updated after the patient was seen, as this information can be updated by other users. 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 current occupational exposures/hazards: No caffeine: Yes ROS Obtained: Yes All systems reviewed & no additional complaints except as documented Physical Exam General General appearance: alert Head Head exam: normocephalic Eye Eye exam: Present PERRL and EOMI; Absent scleral icterus ENT ENT exam: Present mucous membranes moist Neck Neck exam: Present trachea midline Respiratory Respiratory exam: Present normal lung sounds bilaterally; Absent respiratory distress Cardiovascular Cardiovascular exam: Present regular rate Abdominal Exam Abdominal exam: Present soft and tenderness; Absent guarding, rebound or rigidity Abdominal tenderness: Present LLQ and moderate Extremities Exam Extremities exam: Present full ROM Back Exam Back exam: Absent CVA tenderness (L) Neurological Exam Neurological exam: Present alert, oriented X3 and CN II-XII intact; Absent motor sensory deficit Psychiatric Psychiatric exam: Present normal affect Skin Skin exam: Absent rash Medical Decision Making Medical Records Medical records reviewed: Yes I reviewed the patient's medical records. Dandy Inquiry Pt receiving controlled substance: No Vital Signs: 02/22/23 20:13 02/22/23 21:00 02/22/23 21:30 Temperature 98.6 F Temperature Source Oral Pulse Rate 91 H 92 H Pulse Rate [Left] 97 H Respiratory Rate 16 Blood Pressure 124/77 121/80 Blood Pressure [Right Arm] 133/91 H Blood Pressure Mean Blood Pressure Mean [Right Arm] 105 Blood Pressure Source [Right Arm] Automatic Cuff Blood Pressure Position [Right Arm] Sitting 02 Sat by Pulse Oximetry 98 97 97 Oxygen Delivery Method Room Air Room Air Room Air 02/22/23 22:00 02/22/23 22:31 02/22/23 23:00 Temperature Temperat
[2023-02-23] VITALS: BP 137/106; PULSE 76; RESP 18; O2SAT 99
[2023-02-23 00:14] VITALS: BP 137/106; PULSE 76; RESP 18; TEMP 36.9
== END 2023-02-23 00:26 | disposition home or self-care (01) ==
PROVIDERS: Emergency Provider Emergency Medicine; PCP Nurse Practitioner Family
DX: R10.32 Left lower quadrant pain (principal); R10.2 Pelvic and perineal pain; F17.210 Nicotine dependence, cigarettes, uncomplicated
CPT/HCPCS: 74177; 80053; 81001; 82150; 83605; 83690; 85025; 85651; 86140; 87040; 96361; 96374; 96375; 99284; 99285; J2405; Q9967

== ENCOUNTER 2023-03-23 06:07 | Emergency (ER) | payer BC, SELFPAY ==
[2023-03-23 06:20] VITALS: BP 148/96; PULSE 62; RESP 16; TEMP 36.8; O2SAT 98; BMI 28.3
--- NOTE | 2023-03-23 06:25 | CT_ITS ---
FINAL REPORT TECHNIQUE: After the administration of intravenous contrast, axial images were obtained through the abdomen and pelvis by computed tomography. This study was performed with technique to keep radiation doses as low as reasonably achievable, (ALARA). Individualized dose reduction techniques using automated exposure control or adjustment of the MA and/or KV according to the patient's size were employed. CLINICAL HISTORY: lt sided lower abd pain, lt testicle pain COMPARISON: 02/23/2023 FINDINGS: Abdomen: There is mild atelectasis or scarring at the lung bases. The liver is normal in size and attenuation. The spleen is unremarkable. The adrenals are normal. The pancreas is unremarkable. The kidneys enhance appropriately. The aorta is normal in caliber. There is no free fluid or adenopathy. There is diffuse, mild colonic wall thickening consistent with mild colitis, which is worse from prior exam. Pelvis: The appendix is normal. There is urinary bladder wall thickening which is likely inflammatory. There is no free fluid or adenopathy. IMPRESSION: Mild colonic wall thickening consistent with mild colitis, worse from prior exam urinary bladder wall thickening, likely inflammatory Reviewed, Interpreted and Dictated by James Glover III, MD Transcribed by Gladys Jordan Authenticated and [facility]
[2023-03-23 06:31] VITALS: BP 152/103; PULSE 69; RESP 16; O2SAT 100
[2023-03-23 06:36] LABS: Basophils # 0.1 K/mm3 (0-0.2); Basophils % 0.7 % (0.1-2.0); Eosinophils # 0.3 K/mm3 (0.0-0.4); Eosinophils % 3.5 % (0.1-12.0); Hematocrit 50.3 % (42.0-52.0); Hemoglobin 15.8 g/dL (14.1-18.0); Lymphocytes # 3.1 K/mm3 (0.7-4.5); Lymphocytes % 32.6 % (10-50); Mean Corpuscular HGB Conc 31.3 g/dL (31.8-35.4); Mean Corpuscular Hemoglobin 29.3 pg (27.0-31.2); Mean Corpuscular Volume 93.6 fl (80-94); Mean Platelet Volume 9.1 fl (7.4-10.4); Microscopic, Urine URINE MICROSCOPIC (MICROSCOPIC); Monocytes # 0.7 K/mm3 (0.1-1.0); Neutrophils # 5.3 K/mm3 (1.8-7.8); Neutrophils % 56.3 % (37.0-80.0); Platelet Count 208 K/mm3 (142-424); Red Blood Count 5.37 M/mm3 (4.60-6.20); Red Cell Distribution Width 13.1 % (11.5-17.5); White Blood Count 9.4 K/mm3 (4.8-10.8)
[2023-03-23 06:37] LABS: Appearance,Urine CLEAR (Clear); Bilirubin,Urine Negative (Negative); Blood, Urine TRACE-I (Negative); Color,Urine YELLOW (Yellow); Glucose,Urine (UA) Negative (Negative); Ketones,Urine Negative (Negative); Leukocyte Esterase,Urine Negative (Negative); Nitrate,Urine Negative (Negative); PH,Urine 5.5 (5.0-8.5); Protein,Urine Negative (Negative); Specific Gravity, Urine >= 1.030 (1.005-1.030); Urobilinogen,Urine 0.2 EU/dl (0.2)
[2023-03-23 06:43] LABS: Chloride 106 mmol/L (98-107); Potassium 4.5 mmoL/L (3.5-5.1); Sodium 137 mmol/L (136-145)
[2023-03-23 06:46] LABS: Alanine Aminotransferase 24 U/L (12-78); Albumin Level 4.3 g/dl (3.5-5.0); Albumin/Globulin Ratio 1.3 (1.1-1.8); Alkaline Phosphatase 81 U/L (38-126); Amylase 131 U/L (30-110); Anion Gap 13.5 mEq/L (5-15); Aspartate Amino Transferase 36 U/L (17-59); Bilirubin,Total 0.4 mg/dl (0.2-1.3); Blood Urea Nitrogen 10 mg/dl (9-20); Calcium 8.8 mg/dl (8.4-10.2); Carbon Dioxide 22 mmol/L (22.0-30.0); Creatinine Clearance Estimated 90 mL/min (50-200); Estimated Glomerular Filt Rate 71 ml/min (>60); GFR (African American) 86 ML/MIN (>60); Globulin 3.3 g/dL (1.3-3.2); Glucose 108 mg/dl (74-100); Lipase 138 U/L (23-300); Total Protein,Serum 7.6 g/dl (6.3-8.2)
[2023-03-23 06:52] LABS: C-Reactive Protein 4.8 mg/L (0-4); RBC,Urine Occasional #/hpf (0-3); Squamous Epithelial Cell,Urine Occasional #/hpf (0-5); WBC,Urine Occasional #/hpf (0-3)
[2023-03-23 06:53] VITALS: BP 133/89; PULSE 76; RESP 18; O2SAT 99
[2023-03-23 06:53] LABS: Bacteria,Urine 1+ /lpf
[2023-03-23 07:00] VITALS: BP 135/82; PULSE 70; RESP 18; O2SAT 99
--- NOTE | 2023-03-23 07:00 | PC.NURSE ---
Assumed patient care
--- NOTE | 2023-03-23 07:11 | PC.NURSE ---
REPORT GIVEN TO MONI PERALTA RN, JACOBE.
[2023-03-23 07:12] LABS: Erythrocyte Sedimentation Rate 12 mm/hr (0-15)
[2023-03-23 07:20] LABS: Procalcitonin 0.051 ng/mL (0.0-2.0)
--- NOTE | 2023-03-23 07:23 | HMH.EDABDPAI ---
Discharge Plan Disposition Patient Disposition: Home, Self-Care Prescriptions Prescriptions: New metronidazole 500 mg Tablet 500 mg PO TID Qty: 21 0RF levofloxacin 500 mg tablet 500 mg PO DAILY Qty: 7 0RF No Action amoxicillin 500 mg capsule 500 mg PO BID Referrals Follow up/Referrals: Tessa Lewis APRN [Primary Care Provider] - See instructions Vicenta Espino APRN [Staff Physician] - See instructions Clinical Impressions Clinical Impression: Colitis Instructions Patient Instructions: DI for Colitis Discharge ED Provider: Natalie (ED)Tej Abdominal Pain HPI General Chief Complaint: Abdominal Pain Stated Complaint: Abd pain,testicle pain Time Seen by Provider: 03/23/23 07:00 Mode of Arrival: Family Vehicle Source of Information: Patient and Medical Record Limitations: No Limitations Description of Symptoms (Recalled from ER Triage Doc. by RN): 47 YO MALE PRESENTS WITH CC OF ABRUPT ONSET OF LEFT SIDE ABD PAIN AND LEFT SIDE TESTICULAR PAIN. STATES HE WOKE UP AROUND 0400 TO VOID, DID SO SUCCESSFULLY WITHOUT PAIN, AMBULATED INDEPENDENTLY BACK TO HIS BED, LAID DOWN AND NOTED THAT THE LEFT TESTICLE AND LLQ ABD WAS HURTING 8/10 PAIN. AFEBRILE. STATES IT WENT AWAY AND BEGAN HURTING AGAIN ABOUT 30 MINS LATER. AT THIS POINT HE WAS ABLE TO GET UP, AMBULATE BACK TO THE BR AND HAVE A NORMAL BM, WITHOUT PAIN OR DIFFICULTY. PAIN BEGAN AGAIN AFTER COMPLETION AND HE DECIDED TO COME FOR EVALUATION. History of Present Illness HPI narrative: reported lt sided abd pain with rad to lt testicle which started around 0400 - no fever/vomiting or diarrhea - had similar issue about 1 month ago - no hemaruria or rash MD complaint: abdominal pain Onset (ago): hour(s) Consistency: intermittent Location: LLQ Severity: moderate Associated symptoms: denies other symptoms Related Data Home Medications Medication Instructions Recorded Confirmed amoxicillin 500 mg capsule 500 mg PO BID PROPHYLACTIC DENTAL 03/23/23 03/23/23 WORK Previous Rx's Medication Instructions Recorded levofloxacin 500 mg tablet 500 mg PO DAILY #7 tabs 03/23/23 metronidazole 500 mg tablet 500 mg PO TID #21 tabs 03/23/23 Allergies Allergy/AdvReac Type Severity Reaction Status Date / Time No Known Allergies Allergy Verified 02/22/23 20:16 [facility] Disclaimer: The information contained in this section may have been updated after the patient was seen, as this information can be updated by other users. 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 current occupational exposures/hazards: No caffeine: Yes ROS Obtained: Yes All systems reviewed & no additional complaints except as documented Physical Exam General General appearance: alert Head Head exam: normocephalic Eye Eye exam: Present PERRL and EOMI ENT ENT exam: Present mucous membranes moist Neck Neck exam: Present trachea midline Respiratory Respiratory exam: Absent respiratory distress Cardiovascular Cardiovascular exam: Present regular rate Abdominal Exam Abdominal exam: Present soft and tenderness; Absent guarding, rebound or rigidity Abdominal tenderness: Present diffuse and mild exam: Present circumcised; Absent testicular tenderness or scrotal swelling Extremities Exam Extremities exam: Present full ROM Neurological Exam Neurological exam: Present alert and CN II-XII intact; Absent motor sensory deficit Psychiatric Psychiatric exam: Present normal affect Skin Skin exam: Absent rash Medical Decision Making Medical Records Medical records reviewed: Yes I reviewed the patient's medica
--- NOTE | 2023-03-23 07:25 | PC.NURSE ---
Rounded on patient updated on plan of care.
--- NOTE | 2023-03-23 07:46 | PC.NURSE ---
contacted rad to check on status of CT read- states in locked status at this time.
[2023-03-23 08:47] VITALS: BP 132/89; PULSE 72; RESP 16; TEMP 36.8; O2SAT 99
== END 2023-03-23 08:49 | disposition home or self-care (01) ==
PROVIDERS: Emergency Provider Emergency Medicine; PCP Nurse Practitioner Family
DX: K52.9 Noninfective gastroenteritis and colitis, unspecified (principal); R10.32 Left lower quadrant pain; N50.812 Left testicular pain; F17.210 Nicotine dependence, cigarettes, uncomplicated
CPT/HCPCS: 74177; 80053; 81001; 82150; 83690; 84145; 85025; 85651; 86140; 96361; 96374; 96375; 99284; J2405; Q9967

== ENCOUNTER 2023-07-26 07:58 | Day surgery (SDC) | payer BC, SELFPAY ==
[2023-07-18 13:37] VITALS: BMI 28.3
[2023-07-26] VITALS (7 sets, daily range): BP systolic 104–155; BP diastolic 66–79; PULSE 69–95; RESP 15–18; TEMP 36.1–36.3; O2SAT 93–96
--- NOTE | 2023-07-26 08:21 | P.PNANES_ITS ---
[facility] Disclaimer: The information contained in this section may have been updated after the patient was seen, as this information can be updated by other users. 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 current occupational exposures/hazards: No caffeine: Yes [facility] Anesthesia Checklist Patient Identification Patient Identification: Arm Band and Verbal (Name & ) Structural Data Admitted From: Home Planned Operative Procedure/s: Colonoscopy Consent for Planned Operative Procedure(s) Verified: Yes NPO Status Verified Time NPO: 00:00 Additional verifications Anesthesia Reactions: No Airway Assessment Mallampati Score:: Class II C-Spine Mobility Assessed: Yes TMJ Mobility Assessed: Yes Dentition: Good Dentition Neurological Assessment Level of Consciousness: Awake Hx Seizures: No Numbness or tingling in extremities: No Anesthesia Plan Anesthesia Risk discussed: Yes Anesthesia Plan: Verified ASA Class: II Anesthesia Type: MAC
--- NOTE | 2023-07-26 09:16 | HMH.SCOPE ---
Procedure: Date: 07/26/23 Patient Date of :: 1975 Procedure Performed:: Diagnostic Colonoscopy Indications:: Abdominal pain, abnormal CT scan Performing Provider:: Annette Espino MD Referring Provider:: Vicenta Espino APRN Sedation:: Propofol Procedure:: After placing the patient in the left lateral decubitus position, the colonoscopy was gently inserted into the rectum and under direct visualization advanced to the cecum which was identified by transillumination in the right lower quadrant, identification of the ileocecal valve, appendiceal orifice, and cecal strap. Color, texture, mucosa, and anatomy of the colon were carefully examined with the scope. Findings:: Anal canal: normal Rectum: normal Sigmoid colon: normal without polyps or inflammatory changes Descending colon: normal without polyps or inflammatory changes Splenic flexure: normal Transverse colon: normal without polyps or inflammatory changes Hepatic flexure: normal Ascending colon: normal without polyps or inflammatory changes Cecum: normal Terminal ileum: not visualized Impression: Normal colonoscopy exam Recommendations:: Follow up examination in about TEN years or so, sooner if clinically indicated. Complications:: None Estimated blood obtained (mL): 0 Colonoscopy Component Colonoscopy Component Was a colonoscopy performed during today's procedure?: Yes Recommended follow up colonoscopy of at least 10 years?: Yes
== END 2023-07-26 10:10 | disposition home or self-care (01) ==
PROVIDERS: PCP Nurse Practitioner Family; Visit Provider Internal Medicine Gastroenterology
PROC: (CPT 45378; principal; 2023-07-26 09:00)
DX: R10.9 Unspecified abdominal pain (principal); R93.3 Abnormal findings on diagnostic imaging of other parts of digestive tract
CPT/HCPCS: 45378

== ENCOUNTER → 2023-08-13 14:15 | Outpatient (CLI) | payer BC, SELFPAY ==
--- NOTE | 2023-08-13 14:18 | XR_ITS ---
FINAL REPORT CLINICAL HISTORY: dyspnea COMPARISON: 10/04/2020 FINDINGS: Two views of the chest were obtained. The heart size and pulmonary vascularity are within normal limits. The mediastinum is normal. No acute pulmonary abnormality is identified. There is no pneumothorax. The bony thorax is intact. Postoperative changes are present in the right humeral head. IMPRESSION: No active cardiopulmonary disease. Reviewed, Interpreted and Dictated by James Glover III, MD Transcribed by Citlaly Rosas Authenticated and [facility]
[2023-08-13 16:11] LABS: Adenovirus,PCR Not Detected (NotDetected); Coronavirus 19, PCR Not Detected (NotDetected); Coronavirus 229E Not Detected (NotDetected); Coronavirus NL63 Not Detected (NotDetected); Coronavirus OC43 Not Detected (NotDetected); Coronovirus HKU1,PCR Not Detected (NotDetected); Human Metapneumovirus Not Detected (NotDetected); Influenza A, PCR Not Detected (NotDetected); Influenza AH1, 2009 Not Detected (NotDetected); Influenza AH1, PCR Not Detected (NotDetected); Influenza AH3,PCR Not Detected (NotDetected); Influenza B, PCR Not Detected (NotDetected); Parainfluenza 1, PCR Not Detected (NotDetected); Parainfluenza 2, PCR Not Detected (NotDetected); Parainfluenza 3, PCR Not Detected (NotDetected); Respiratory Syncytial Virus Not Detected (NotDetected); Rhinovirus/Enterovirus Not Detected (NotDetected)
[2023-08-13 18:43] LABS: Parainfluenza 4, PCR Detected (NotDetected)
== END ==
LOC: RAD 14:16
PROVIDERS: PCP Nurse Practitioner Family; Visit Provider Nurse Practitioner Family
DX: R06.00 Dyspnea, unspecified (principal); J06.9 Acute upper respiratory infection, unspecified; B34.8 Other viral infections of unspecified site
CPT/HCPCS: 71046; 87632; 87635

== ENCOUNTER → 2023-08-13 16:23 | Outpatient (CLI) | payer BC, SELFPAY | PROVIDERS: PCP Nurse Practitioner Family; Visit Provider Nurse Practitioner Family | DX: R06.02 Shortness of breath (principal) ==

== ENCOUNTER 2023-12-10 16:59 | Outpatient (CLI) | payer BC, SELFPAY ==
[2023-12-10 16:59] LABS: Coronavirus 19, PCR Not Detected (NotDetected); Influenza A, PCR Not Detected (NotDetected); Influenza B, PCR Not Detected (NotDetected)
== END 2023-12-10 23:59 ==
LOC: LAB.DROPOF 17:00
PROVIDERS: PCP Nurse Practitioner Family; Visit Provider Nurse Practitioner Family
DX: R11.0 Nausea (principal); R05.9 Cough, unspecified; Z20.828 Contact with and (suspected) exposure to other viral communicable diseases; R50.9 Fever, unspecified; R19.7 Diarrhea, unspecified
CPT/HCPCS: 87636

== ENCOUNTER 2024-03-21 15:40 | Outpatient (CLI) | payer BC, SELFPAY ==
[2024-03-21 13:10] LABS: Influenza A, PCR Not Detected (NotDetected); Influenza B, PCR Not Detected (NotDetected)
[2024-03-21 13:55] LABS: Coronavirus 19, PCR Detected (NotDetected)
== END 2024-03-21 23:59 | disposition home or self-care (01) ==
LOC: LAB.DROPOF 15:41
PROVIDERS: PCP Nurse Practitioner Family; Visit Provider Nurse Practitioner Family
DX: R68.83 Chills (without fever) (principal); R52 Pain, unspecified; R51.9 Headache, unspecified
CPT/HCPCS: 87636

== ENCOUNTER 2025-04-22 16:45 | Outpatient (CLI) | payer BC, SELFPAY ==
--- NOTE | 2025-04-22 | XR_ITS ---
PROCEDURE INFORMATION: Exam: XR Right Foot Exam date and time: 04/22/2025 5:04 PM Age: 49 years old Clinical indication: Toes; Right; PT complains of knot on top of 1st metatarsal, pain TECHNIQUE: Imaging protocol: Radiologic exam of the right foot. Views: 1 or 2 views. COMPARISON: No relevant prior studies available. FINDINGS: Bones/joints: Mild osteoarthritis involving the toes. Mild cortical thickening along the lateral shaft of the proximal 5th metatarsal that is felt to be a normal variation. Small round benign-appearing 2.5 x 2 mm ossification dorsal to the distal proximal phalanx great toe. Small accessory ossification adjacent to the tip of the lateral malleolus. Tiny plantar calcaneal spur. Soft tissues: Normal. IMPRESSION: No acute findings. Mild degenerative changes right foot. No definite soft tissue mass is appreciated on this examination.
--- NOTE | 2025-04-22 | XR_ITS ---
PROCEDURE INFORMATION: Exam: XR Left Shoulder Exam date and time: 04/22/2025 5:10 PM Age: 49 years old Clinical indication: Pain; Shoulder; Left; Additional info: PT complains of pain in left shoulder, aching, worries it might be related to a rotator cuff issue TECHNIQUE: Imaging protocol: Radiologic exam of the left shoulder. Views: 2 or more views. COMPARISON: CR XR CHEST 2V 08/13/2023 2:28 PM FINDINGS: Bones/joints: Mild hypertrophic osteoarthritis left acromioclavicular joint with a small ossification at the superior aspect of the acromioclavicular joint that is probably degenerative. Heart/Mediastinum: Calcified lymph node AP window. Soft tissues: Normal. IMPRESSION: No acute findings. 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
--- NOTE | 2025-04-22 | XR_ITS ---
PROCEDURE INFORMATION: Exam: XR Left Foot Exam date and time: 04/22/2025 5:07 PM Age: 49 years old Clinical indication: Toes; Left; PT complains of knot on top of 1st metatarsal, pain TECHNIQUE: Imaging protocol: Radiologic exam of the left foot. Views: 1 or 2 views. COMPARISON: No relevant prior studies available. FINDINGS: Bones/joints: Mild degenerative changes involving the toes of the left foot and the talonavicular joint. Accessory ossification adjacent to the distal tip of the fibula. Small plantar calcaneal spur within adjacent soft tissue calcification that is probably within the plantar fascia. Soft tissues: See Bones/joints finding. IMPRESSION: No acute findings. Mild degenerative changes. No discrete soft tissue mass is appreciated on this examination.
--- NOTE | 2025-04-22 | XR_ITS ---
PROCEDURE INFORMATION: Exam: XR Cervical Spine Exam date and time: 04/22/2025 5:13 PM Age: 49 years old Clinical indication: Neck pain; Additional info: Pain in neck, PT complains it feels like a pulled muscle stemming into left shoulder TECHNIQUE: Imaging protocol: Radiologic exam of the cervical spine. Views: 2 or 3 views. COMPARISON: CR XR SHOULDER LT MIN 2V 04/22/2025 5:10 PM FINDINGS: Bones/joints: Straightening of the normal cervical lordosis. Moderate degenerative disc disease C6-C7 with disc space narrowing and anterior osteophyte formation. Moderate degenerative disc disease C5-C6 with slight retrolisthesis of C5 with respect to C6 and small posterior osteophyte formation at this level. Mild facet joint arthritis upper cervical spine. Soft tissues: Unremarkable. IMPRESSION: No acute findings. Moderate degenerative disc disease lower cervical spine with slight retrolisthesis of C5 with respect to C6. Mild facet joint arthritis upper cervical spine. Straightening of the normal cervical lordosis which raises the possibility of muscle spasm.
== END 2025-04-22 23:59 | disposition home or self-care (01) ==
LOC: RAD 16:46
PROVIDERS: PCP Nurse Practitioner Family; Visit Provider Internal Medicine
DX: M19.012 Primary osteoarthritis, left shoulder (principal); M19.072 Primary osteoarthritis, left ankle and foot; M19.071 Primary osteoarthritis, right ankle and foot; M50.322 Other cervical disc degeneration at C5-C6 level; M50.323 Other cervical disc degeneration at C6-C7 level; M43.12 Spondylolisthesis, cervical region; M47.812 Spondylosis without myelopathy or radiculopathy, cervical region; M53.82 Other specified dorsopathies, cervical region; S46.002A Unspecified injury of muscle(s) and tendon(s) of the rotator cuff of left shoulder, initial encounter
CPT/HCPCS: 72040; 73030; 73620

== ENCOUNTER 2025-05-08 15:28 | Outpatient (RCR) | payer BC, SELFPAY ==
--- NOTE | 2025-05-08 16:08 | HMH.PTOPEV ---
PT Outpatient Evaluation Rehab PT Outpatient Evaluation Start: 05/08/25 15:31 Freq: Status: Active Protocol: Document 05/08/25 15:59 PHORNE (Rec: 05/08/25 16:08 PHORNE [id number]) E-signed By Devon Nava, PT Outpatient Therapy Subjective History Subjective History This is the initial PT eval for Roberth Harper, 49 yom who presents with c/o vertigo/dizziness x ~ 1 mo with insidious onset of symptoms. He reports episodes typically last 30-60 sec, but he has had one episode lasting ~ 30 min. He reports symptoms of feeling that things are spinning and mildly lightheaded. He has no significant PMH that would affect his current c/o except current L shoulder pain with L UE numbness and tingling. Chief Complaint Other Miscellaneous Dx PT Eval Objective Objective Occulomotor testing: Smooth pursuit, GEN, VOR cancellation, saccades, cross cover, lateral visual tracking all negative for symptoms. Finger rub test normal on B ears Ely-Hallpike test: positive upbeating left torsional nystagmus lasting ~ 30 sec with testing on L side. This denotes PSC canalithiasis. SUPERVISORY FORESTER to treat L side PSC canalithiasis performed with good results after treatment. Outpatient Therapy Assessment Impairments Problems/ Impaired Self Care/Self Management Impairmments Prognosis Rehab Potential Good Comment Signs and symptoms consistent L side PSC BPPV. Clinical Impression Consistent with Yes Diagnosis Additional details: No further treatment necessary at this time. If pt symptoms persist, recommend further treatment in ~ 2 weeks. Outpatient Therapy Plan of Care Treatment Plan May Include Eval/Re-Eval Yes Frequency Times per week 0 Duration Number of Weeks 0 Addendums This patient is a No candidate for social or vocational rehab ? Patient/Guardian Yes verbally acknowledges understanding of treatment program and consents to further treatment? Patient/Guardian Yes verbally acknowledges understanding of diagnosis, prognosis and goals for treatment? Eval Complexity PT Charges 15121 - High Complexity Shoulder/Elbow Eval Shoulder Objective Measurements Elbow Objective Measurements PHYSICIAN CERTIFICATION: I certify the specified therapy services for Roberth Harper are required, authorized, and reviewed every 30 days.
== END 2025-05-08 23:59 | disposition home or self-care (01) ==
LOC: PT 15:28
PROVIDERS: PCP Nurse Practitioner Family; Visit Provider Internal Medicine
DX: H81.10 Benign paroxysmal vertigo, unspecified ear (principal)
CPT/HCPCS: 97163

== ENCOUNTER 2025-06-08 15:59 | Outpatient (RCR) | payer BC, SELFPAY ==
--- NOTE | 2025-06-08 18:02 | HMH.PTOPEV ---
PT Evaluation Rehab PT Outpatient Evaluation Start: 06/08/25 16:03 Freq: Status: Active Protocol: Document 06/08/25 16:03 DAVIDMARCIANO (Rec: 06/08/25 18:02 NELSON [id number]) E-signed By Nayana Noriega, PT Outpatient Therapy Subjective History Subjective History Pt is a 49 y/o male who reports onset of intermittent left upper extremity numbness 3 months ago without known trauma or injury. Pt denies chest pain. Pt states symptoms worsened to a constant state for ~2 weeks that improved after taking prescribed steroids and anti -inflammatory medications. Pt reports currents symptoms of left-sided neck pain that radiates into the shoulder blade and upper trapezius with intermittent numbness/tingling of the LUE into his thumb and pinky fingers. 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 Pt had a cervical spine xray on 04/22/25 with impression of No acute findings. Moderate degenerative disc disease lower cervical spine with slight retrolisthesis of C5 with respect to C6. Mild facet joint arthritis upper cervical spine. Straightening of the normal cervical lordosis which raises the possibility of muscle spasm. Pt also had a left shoulder xray with impression of No acute findings. 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 Pt reports he was having impaired sleep due to symptoms but has been able to sleep better over the last 4-5 days. Pt reports he is currently taking prescribed Ibuprofen 800 and applying ice as needed which improves his symptoms. Pt denies further comorbidities to report. 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 Chief Complaint Pain,Swelling Symptom Type Ache,Dull,Stabbing,Numbness Symptoms Relieved By Rest/Positioning,Ice,OTC Meds Symptoms Aggravated Physical Activity By Current Functional Lifting,Sleeping,Recreation Activity Limitations Symptom Description Constant but Variable Level of pain today 3 (0-10) Pain scale - at its 3 best (0-10) Pain scale - at its 10 worst (0-10) Cervical Eval Palpation Cervical Muscles L Cervical Paraspinal,L Upper Trapezius Cervical/Thoracic Tenderness,Muscle Guarding Palpation Findings Flexibility Deficits Upper Trapezius (L) Moderate Tightness Muscle Length Levaetor Scapulae (L) Moderate Tightness Muscle Length Passive Joint Mobility Cervical PIVM Dec: R C5/6 L C5/6 R C6/7 L C6/7 AROM Cervical Spine 40 Extension Active Range of Motion ( degrees) Cervical Spine 50 Flexion Active Range of Motion (degrees) Cervical Spine Right 35 Lateral Flexion Active Range of Motion (degrees) Cervical Spine Left 30 Lateral Flexion Active Range of Motion (degrees) Cervical Spine Right 65 Rotation Active Range of Motion ( degrees) Cervical Spine Left 65 Rotation Active Range of Motion ( degrees) DTR Rt Biceps 2+ Lt Biceps 2+ Rt Brachioradialis 2+ Lt Brachioradialis 2+ Rt Triceps 2+ Lt Triceps 2+ Altered Sensation Bilateral Upper extremity C5,C6 Dermatomes Comment decreased light touch left compared to right Special Test C-Spine Foraminal Positive Left Compression ( [place]) Test C-spine Verterbral Central P/A [place],Left P/A [place] Accessory Movements that Elicit Symptoms C-Spine Foraminal Positive Distraction Test C-Spine Compression Positive Left Test Shoulder Abduction Positive Left Relief Test Shoulder/Elbow Eval Shoulder Objective Measurements Shoulder ROM Left Shoulder Abduction 180 Active Range of Motion (degrees) Shoulder Flexion 180 Passive Range of Motion (degrees) full ROM shoulder left exam standard Shoulder MMT Lower Trapezius 4 Good Strength Grade Middle Trapezius 4 Good Strength Grade Rhomboids Strength 4 Good Grade Upper Trapezius/ 4 Good Levator Scapulae Shoulder Abduction 4+ Good+ Strength Grade Shoulder Extension 5 Normal Strength Grade Shoulder Flexion 5 Normal Strength Grade Shoulder Special Tests Shoulder Drop Arm Negative Left Test Shoulder Cross-Over Negative Left Impingement Test Acromioclavicular Positive Left Joint Compression Test Shoulder Grind Test Negative Left Shoulder Garcia- Negative Left Dewey Impingement Test Shoulder Posterior Negative Left Load and Shift Test Elbow Objective Measurements Neck Disability Index Neck Disability Index Section 1: Pain The pain is moderate at the moment Intensity Section 2: Personal I can look after myself normally without causing extra Care (washing, pain dressing, etc.) Section 3: Lifting I can lift heavy weights but it gives extra pain Section 4: Reading I can read as much as I want with moderate pain in my neck Section 5: Headaches I have no headaches at all Section 6: I can concentrate fully when I want to with no Concentration difficulty Section 7: Work I can do as much work as I want to Section 8: Driving I can drive my car as long as I want with slight pain in my neck Section 9: Sleeping My sleep is midly disturbed (1-2 hrs sleepless) Section 10: I am able to engage in all my recreation activities Recreation with some pain in NDI Score 9 Outpatient Therapy Assessment Impairments Problems/ Palpation Tenderness,Impaired Range of Motion,Impaired Impairmments Strength,Impaired Lifting,Impaired Recreational Activities,Impaired Work Activities,Subjective C/O Pain ,Impaired Self Care/Self Management Prognosis Rehab Potential Good Clinical Impression Consistent with Yes Diagnosis PT Patient Goals PT Patient Goals PT Short Term 3 weeks: Patient Goals 1. Verbalize compliance with HEP to assist with progress 2. Improve pain at worst to 8/10 or less to improve overall QOL 3. Demonstrate equal light touch sensation of left C5-6 dermatomes PT [employer] Patient 6 weeks: Goals 1. Improve cervical AROM ext to 45, LF to 45, and rotation to 70 to assist with mobility/function. 2. Improve scapular strength to 4+-5/5 grossly to assist with posture/function. 3. Improve pain at worst to 6/10 to improve overall QOL 4. Improve NDI score to 5 or less to improve overall QOL/function 5. Report ability to drive vehicle without modification and pain 6/10 or less 6. Improve TTP of left cervical musculature and C5-6 motions segments to assist with pain Outpatient Therapy Plan of Care Treatment Plan May Include Therapeutic Exercise Yes Including Home Exercise Program Manual Therapy Yes Techniques Neuromuscular Re- Yes education Therapeutic Yes Activities to Return to Previous Functional/Work Level Gait Training Yes ADL/Self Care Yes Education Mechanical Traction Yes Dry Needling Yes Thermal Modalities Yes Electrical Yes Stimulation Ultrasound/ Yes Phonophoresis Iontophoresis Yes Massage Yes Eval/Re-Eval Yes Frequency Times per week 2 Duration Number of Weeks 6 Addendums This patient is a No candidate for social or vocational rehab ? Patient/Guardian Yes verbally acknowledges understanding of treatment program and consents to further treatment? Patient/Guardian Yes verbally acknowledges understanding of diagnosis, prognosis and goals for treatment? Eval Complexity PT Charges 29470 - Low Complexity PHYSICIAN CERTIFICATION: I certify the specified therapy services for Roberth Humberto Wedding are required, authorized, and reviewed every 30 days.
== END 2025-06-08 23:59 | disposition home or self-care (01) ==
LOC: PT 15:59
PROVIDERS: PCP Nurse Practitioner Family; Visit Provider Internal Medicine
DX: S46.002A Unspecified injury of muscle(s) and tendon(s) of the rotator cuff of left shoulder, initial encounter (principal)
CPT/HCPCS: 97161

== ENCOUNTER 2025-06-25 14:15 | Outpatient (CLI) | payer BC, SELFPAY ==
--- OUTSIDE RECORDS SUMMARY | 2025-06-26 11:11 | XMS_ITS | Clinical Summary ---
Author Organization [employer] ([place], [place], [place], [place]) [address] [facility] [place] [address] Care Team Providers Care Account Services Specialist Name Role Phone Unavailable Primary Care Provider Unavailabl e Social History Tobacco Use Types Packs/Day Years Used Date Smoking Tobacco: Never Assessed Sex and Gender Information Value Date Recorded Sex Assigned at Not on file Legal Sex Male 4:52 PM CDT Gender Identity Not on file Sexual Orientation Not on file Plan of Treatment Not on file
--- OUTSIDE RECORDS SUMMARY | 2025-06-26 11:11 | XMS_ITS | Clinical Summary ---
Author Organization [facility] , [facility] Address [address] [place] [address] Phone Care Team Providers Care Member Of Parliament Name Role Phone tSar LOPEZ, Prosper Gordon Unavailable [phone] KINZA ENG Unavailable [phone] Reason for Visit and Chief Complaint The Chief Complaint is: Right shoulder pain Problems Includes: Problems addressed during this encounter and other active Problems All Visits Onset Date Resolved Date Provider Condition S tatus History of Joint Pain Shoulder Right 05/17/2022 Prosper Graves MD Active Last Documented On 2 10:25AM ; [facility] Plan of Treatment Patient is progressing as expected. Rotator cuff repair rehab typically takes between 6- 8 months. The patient will have no restrictions in therapy at this time. They understand the recommendations. Patient will follow-up as scheduled, if there are any issues they can feel free to call the office. - Last Documented On 12/14/2023 2:30PM ; [facility] Instructions to patient Intervention and counseling on cessation of tobacco use Last Documented On 3 10:59AM ; [facility] Lose weight Last Documented On 3 10:59AM ; [facility] Assessments Includes: Assessments from this encounter Findings - Overweight - Last Documented On 12/14/2023 2:30PM ; [facility] Right rotator cuff repair - Last Documented On 12/14/2023 2:30PM ; [facility] Instructions Includes: Instructions from this encounter Instructions to patient Intervention and counseling on cessation of tobacco use Last Documented On 3 10:59AM ; [facility] Lose weight Last Documented On 3 10:59AM ; [facility] Medical Equipment - Implanted Devices Includes: Current Devices No Medical Equipment Recorded Medications Includes: Medications discussed during this encounter and other current Medications New / Renewed during this visit Prosper Graves MD on 09/28/2022 Cyclobenzaprine HCl 5 MG Ora l Tablet Provider: Prosper Graves MD 14 day supply: 14 tablet, 0 refills Diagnosis: 1 every bedtime Pharmacy: [facility] - [address] [place] [address] [facility] [place], [id number] - Last Documented On 3 11:15AM By Radha Walker ; [facility] Current Medications (continue as prescribed) buPROPion HCl ER (SR) 150 MG Oral Tablet Extended Release 12 Hour 05/04/2022 Provider: Amada Benton NP Diagnosis: Last Documented On 2 3:34PM By Jennifer Johnson [facility] Past Medications on file traMADol HCl 50 MG Oral Tablet 10/03/2022 - 10/06/2022 Provider: Prosper malik MD Diagnosis: ONE TABLET BY MOUTH three times a day Last Documented On 3 2:58PM By Prosper Graves ; [facility] Cyclobenzaprine HCl 5 MG Ora l Tablet 08/02/2022 - 08/09/2022 Provider: Prosper malik MD Diagnosis: three times a day 1 TABLET 3 TIMES A DAY Last Documented On 2 2:26PM By Radha Walker ; [facility] Ondansetron HCl 4 MG Oral Tablet 06/05/2022 - 06/15/2022 Provider: Prosper malik MD Diagnosis: 1 q 8 hours prn nausea 1 q 8 hours prn post op nausea Last Documented On 2 7:50AM By Prosper Graves ; [facility] oxyCODONE HCl 5 MG Oral Tablet 06/05/2022 - 06/10/2022 Provider: Prosper amlik MD Diagnosis: 1-2 po q 4-6h prn post op pain Last Documented On 2 7:50AM By Prosper Graves ; [facility] Medications Administered Includes: Administered Medications from this encounter No Administered Medications Recorded Vital Signs Includes: Vital Signs from this encounter Vital Name 09/28/2022 10:59A Blood Pressure Sitting (mmHg) 135/85 Pulse Rate-Sitting (bpm) 85 Height (in) 65 Weight (lb) 174 Body Mass Index 29 Body Surface Area 1.9 Note: hdv Last Documented: On 09/28/2022 10:59A M ; [facility], [facility] Results Includes: Results discussed during this encounter No Results Recorded For Specified Dates History of Present Illness Includes: History of Present Illness from this encounter HPI Roberth Harper is a 47 year old male. - Symptoms Catching, giving away, grinding, popping Pain worse: lifting anything. - Allergy list reviewed - Problem list reviewed - Medication list reviewed - Previous history of new onset pain 2012 Injury is not work related or an automotive accident. recreational sports - Patient pain level from 1-10: 5 - Yes, previous treatment. PCP - History of Injections Social History Description Last Updated Alcohol use 05/17/2022 Last Documented On 3 10:59AM ; [facility] No caffeine use 05/17/2022 Last Documented On 3 10:59AM ; [facility] No recent change in diet 05/17/2022 Last Documented On 3 10:59AM ; [facility] Not exercising regularly 05/17/2022 Last Documented On 3 10:59AM ; [facility] Not using drugs 05/17/2022 Last Documented On 3 10:59AM ; [facility] Yes, current smoker. 05/17/2022 Last Documented On 3 10:59AM ; [facility] Not a tobacco non-user 05/17/2022 Last Documented On 3 10:59AM ; [facility] Tobacco use 05/17/2022 Last Documented On 3 10:59AM ; [facility] Smoking Status Unknown Procedures and Surgical History Includes: Procedures from this encounter Procedures Code Diagnosis Performing Provider Service L ocation Service Date intervention and counseling on cessation of tobacco use 4000F Last Documented On 3 10:59AM ; [facility] use of tobacco assessment performed 1000F Last Documented On 3 10:59AM ; [facility] review of medications documented 1160F Last Documented On 4 2:29PM ; [facility] Medical History Includes: Medical History addressed during this encounter Description Last Updated Past medical and surgical history non-co ntributory 05/17/2022 Last Documented On 3 10:59AM ; [facility] No recent immunization for flu 2 Last Documented On 3 10:59AM ; [facility] No recent immunization for pneumococcal pneumonia 05/17/2022 Last Documented On 3 10:59AM ; [facility] Family History Includes: Family History addressed during this encounter Description Last Updated No significant family history 05/17/2022 Last Documented On 3 10:59AM ; [facility] Review of Systems Includes: Review of Systems from this encounter Systemic: Not feeling tired, no recent weight loss, and no recent weight gain. Head: No headache and no sinus pain. Eyes: No vision problems and no Cataracts. Glasses/Contacts. No Glaucoma. Otolaryngeal: No hearing loss and no tinnitus. Cardiovascular: No chest pain or discomfort, no palpitations, no Hypertension, and no High Cholesterol. Pulmonary: No daytime asthma symptoms and no chronic cough. No wheezing. Gastrointestinal: No heartburn and no abdominal pain. No Indigestion, no Acid Reflux, no Peptic Ulcer, no GI Stomach Bleed, and no Ulcers. Endocrine: No hot flashes, no muscle weakness, no Diabetes, no Hypothyroid, and no Hyperthyroid. Hematologic: No easy bleeding, no tendency for easy bruising, and no Anemia. Musculoskeletal: No Arthritis and no lower back pain. No soft tissue swelling and no localized joint pain. Neurological: No dizziness, no convulsions, and no numbness. Psychological: No anxiety, no emotional lability, no depression, and no insomnia. Not crying for no reason. Skin: No dry skin. No Ulcers, no Scars, and no rash. Allergic and Immunologic: No complaint of seasonal allergic reaction. Mental Status Includes: Mental Status from this encounter Description No anxiety Functional Status Includes: Functional Status from this encounter No Functional Status Recorded Physical Exam Includes: Physical Exam from this encounter Allergies Includes: Active Allergies No Known Allergies Encounters Encounter Provider Location Date Check-In Time Check-Out Time Diagnosis Follow Up Margarita Goff PA-C [facility] 3 10:55AM 11:04AM Overweight Insurance Includes: Active Insurance Policies Plan Name Member ID Group # Subscriber Relationship Effect adelita Dates 1 - [facility] [id number] Roberth Harper Self 09/24/19 - Unknown Clinical Notes Includes: Clinical Notes from this encounter * Progress note Date Encounter Last Documented by 09/28/2022 Follow Up Last documented on 12/14/2023; 2:30 PM, Margarita Goff PA-C; [facility], [facility] Active Problems & Conditions - History of Joint Pain, Localized in the Right Shoulder Chief Complaint The Chief Complaint is: Right shoulder pain. Referred Here Referred by Dr. Collins. History of Present Illness Roberth Harper is a 47 year old male. - Symptoms Catching, giving away, grinding, popping Pain worse: lifting anything. - Allergy list reviewed - Problem list reviewed - Medication list reviewed - Previous history of new onset pain 2012 Injury is not work related or an automotive accident. recreational sports - Patient pain level from 1-10: 5 - Yes, previous treatment. PCP - History of Injections Current Medication - buPROPion HCl ER (SR) 150 MG Oral Tablet Extended Release 12 Hour take as directed 30 days, 0 refills Past Medical/Surgical History Reported: Immunization History: No recent immunization for flu and not for pneumococcal pneumonia. Past medical and surgical history non-contributory. Social History Yes, current smoker. Current diet: No recent change in diet. Caffeine use: No caffeine use. Tobacco use: Tobacco use. Not a tobacco non-user. Alcohol: Alcohol use. Drug Use: Not using drugs. Habits: Not exercising regularly. Allergies - No Known Allergies Family History No significant family history Review Of Systems Systemic: Not feeling tired, no recent weight loss, and no recent weight gain. Head: No headache and no sinus pain. Eyes: No vision problems and no Cataracts. Glasses/Contacts. No Glaucoma. Otolaryngeal: No hearing loss and no tinnitus. Cardiovascular: No chest pain or discomfort, no palpitations, no Hypertension, and no High Cholesterol. Pulmonary: No daytime asthma symptoms and no chronic cough. No wheezing. Gastrointestinal: No heartburn and no abdominal pain. No Indigestion, no Acid Reflux, no Peptic Ulcer, no GI Stomach Bleed, and no Ulcers. Endocrine: No hot flashes, no muscle weakness, no Diabetes, no Hypothyroid, and no Hyperthyroid. Hematologic: No easy bleeding, no tendency for easy bruising, and no Anemia. Musculoskeletal: No Arthritis and no lower back pain. No soft tissue swelling and no localized joint pain. Neurological: No dizziness, no convulsions, and no numbness. Psychological: No anxiety, no emotional lability, no depression, and no insomnia. Not crying for no reason. Skin: No dry skin. No Ulcers, no Scars, and no rash. Allergic and Immunologic: No complaint of seasonal allergic reaction. Physical Findings - Vitals taken 09/28/2022 10:59 am hdv BP-Sitting 135/85 mmHg Pulse Rate-Sitting 85 bpm Height 65 in Weight 174 lbs Body Mass Index 29 kg/m2 Body Surface Area 1.9 m2 general Exam: The patient is awake and alert. No acute distress. Normal mood and affect for age. Well groomed and nourished Neuro: Sensation was intact to light touch over the extremity. Vascular: +2 radial pulses. No edema. Derm: No signs of active infection. No acute skin changes. Musculoskeletal: Normal gait and station. No muscle atrophy. No joint effusion. No muscle or bony deformity He has full forward flexion. There is weakness in his cuff is to be expected there is no instability Assessment - Overweight Right rotator cuff repair Therapy - Intervention and counseling on cessation of tobacco use. Counseling/Education - Lose weight Plan StartCited - Other Cyclobenzaprine HCl 5 MG tablet 1 every bedtime, 14 days, 0 refills traMADol HCl 50 MG tablet ONE TABLET BY MOUTH three times a day, 3 days, 0 refills EndCited Patient is progressing as expected. Rotator cuff repair rehab typically takes between 6- 8 months. The patient will have no restrictions in therapy at this time. They understand the recommendations. Patient will follow-up as scheduled, if there are any issues they can feel free to call the office. Notes This dictation was done with voice recognition software and may contain errors and omissions. Practice Management Use of tobacco assessment performed Review of medications documented. Care Team - KINZA ENG
--- OUTSIDE RECORDS SUMMARY | 2025-06-26 11:11 | XMS_ITS | Referral Summary ---
Author Organization [facility] ([place], [place], [place], [place]) Address [address] [facility] [place] [address] Care Team Providers Care Aco Coordinator Name Role Phone Unavailable Primary Care Provider [...]
--- OUTSIDE RECORDS SUMMARY | 2025-06-26 11:11 | XMS_ITS | Clinical Summary ---
Author Organization [facility] , [facility] Address [address] [place] [address] Phone Care Team Providers Care Athlete Manager Name Role Phone Star LOPEZ, Prosper Gordon Unavailable [phone] KINZA ENG Unavailable [phone] Reason for Referral Date Encounter Description Provider Reason for Referral 08/02/22 Post Op Margarita Goff PA-C Refe rral To Physician Reason for Visit and Chief Complaint The Chief Complaint is: Right shoulder pain Problems Includes: Problems addressed during this encounter and other active Problems All Visits Onset Date Resolved Date Provider Condition S tatus History of Joint Pain Shoulder Right 05/17/2022 Prosper Graves MD Active Last Documented On 2 10:25AM ; [facility], [facility] Plan of Treatment He is doing very well he has some mild muscle spasm descriptive type pain but nothing really reproducible today. He can continue in therapy. He is likely to have this completely rehabbed in 4-5 months postop - Last Documented On 08/04/2022 9:10AM ; [facility], [facility] Instructions to patient Intervention and counseling on cessation of tobacco use Last Documented On 2 2:01PM ; [facility], [facility] Lose weight Last Documented On 2 2:01PM ; [facility], [facility] Assessments Includes: Assessments from this encounter Findings Right cuff repair - Last Documented On 08/04/2022 9:10AM ; [facility], [facility] Instructions Includes: Instructions from this encounter Instructions to patient Intervention and counseling on cessation of tobacco use Last Documented On 2 2:01PM ; [facility], [facility] Lose weight Last Documented On 2 2:01PM ; [facility], [facility] Medical Equipment - Implanted Devices Includes: Current Devices No Medical Equipment Recorded Medications Includes: Medications discussed during this encounter and other current Medications New / Renewed during this visit Prosper Graves MD on 08/02/2022 Cyclobenzaprine HCl 5 MG Ora l Tablet Provider: Prosper Graves MD 7 day supply: 21 tablet, 0 refills Diagnosis: three times a day 1 TABLET 3 TIMES A DAY Pharma cy: [facility] - [address] [place] [address] S Mk, [id number] - Last Documented On 2 2:26PM By Radha Walker ; [facility], [facility] Current Medications (continue as prescribed) buPROPion HCl ER (SR) 150 MG Oral Tablet Extended Release 12 Hour 05/04/2022 Provider: Amada Benton NP Diagnosis: Last Documented On 2 3:34PM By Jennifer Mahmood ; [facility], [facility] Past Medications on file traMADol HCl 50 MG Oral Tablet 10/03/2022 - 10/06/2022 Provider: Prosper malik MD Diagnosis: ONE TABLET BY MOUTH three times a day Last Documented On 3 2:58PM By Prosper Graves ; [facility] Cyclobenzaprine HCl 5 MG Ora l Tablet 09/28/2022 - 10/12/2022 Provider: Prosper malik MD Diagnosis: 1 every bedtime Last Documented On 3 11:15AM By Radha Walker ; [facility] Ondansetron HCl 4 MG Oral Tablet 06/05/2022 - 06/15/2022 Provider: Prosper malik MD Diagnosis: 1 q 8 hours prn nausea 1 q 8 hours prn post op nausea Last Documented On 2 7:50AM By Prosper Graves ; [facility] oxyCODONE HCl 5 MG Oral Tablet 06/05/2022 - 06/10/2022 Provider: Prosper malik MD Diagnosis: 1-2 po q 4-6h prn post op pain Last Documented On 2 7:50AM By Prosper Graves ; [facility] Medications Administered Includes: Administered Medications from this encounter No Administered Medications Recorded Vital Signs Includes: Vital Signs from this encounter Vital Name 08/02/2022 02:04P Blood Pressure Sitting (mmHg) 149/100 Pulse Rate-Sitting (bpm) 92 Height (in) 65 Weight (lb) 174 Body Mass Index (kg/m2) 29.0 Body Surface Area (m2) 1.9 Note: hdv Last Documented: On 08/02/2022 2:04PM ; [facility], [facility] Results Includes: Results discussed during this encounter No Results Recorded For Specified Dates History of Present Illness Includes: History of Present Illness from this encounter HPI Roberth Harper is a 46 year old male. - Symptoms Catching, giving [...] Updated Alcohol use 05/17/2022 Last Documented On 2 2:01PM ; [facility] No caffeine use 05/17/2022 Last Documented On 2 2:01PM ; [facility] No recent change in diet 05/17/2022 Last Documented On 2 2:01PM ; [facility] Not exercising regularly 05/17/2022 Last Documented On 2 2:01PM ; [facility] Not using drugs 05/17/2022 Last Documented On 2 2:01PM ; [facility] Yes, current smoker. 05/17/2022 Last Documented On 2 2:01PM ; [facility] Not a tobacco non-user 05/17/2022 Last Documented On 2 2:01PM ; [facility] Tobacco use 05/17/2022 Last Documented On 2 2:01PM ; [facility], [facility] Smoking Status Unknown Procedures and Surgical History Includes: Procedures from this encounter Procedures Code Diagnosis Performing Provider Service L ocation Service Date intervention and counseling on cessation of tobacco use 4000F Last Documented On 2 2:01PM ; [facility] use of tobacco assessment performed 1000F Last Documented On 2 2:01PM ; [facility] patient screened for future fall risk: no documentation of any fall with injury in past year 1100F Last Documented On 2 2:01PM ; [facility] follow-up visit in one month Last Documented On 2 2:05PM ; [facility] referral to physician Last Documented On 2 2:01PM ; [facility] Medical History Includes: Medical History addressed during this encounter Description Last Updated Past medical and surgical history non-co ntributory 05/17/2022 Last Documented On 2 2:01PM ; [facility] No recent immunization for flu 2 Last Documented On 2 2:01PM ; [facility] No recent immunization for pneumococcal pneumonia 05/17/2022 Last Documented On 2 2:01PM ; [facility] Family History Includes: Family History addressed during this encounter Description Last Updated No significant family history 05/17/2022 Last Documented On 2 2:01PM ; [facility] Review of Systems Includes: Review of [...] Encounters Encounter Provider Location Date Check-In Time Check- Out Time Diagnosis Post Op Margarita Goff PA-C [facility] 2 1:49PM 2:15PM Insurance Includes: Active Insurance Policies Plan Name Member ID Group # Subscriber Relationship Effect adelita Dates 1 - [facility] [id number] Roberth Harper Self 09/24/[birth year] 22 - Unknown Clinical Notes Includes: Clinical Notes from this encounter No Clinical Notes Recorded
--- OUTSIDE RECORDS SUMMARY | 2025-06-26 11:11 | XMS_ITS ---
Author Organization [facility] , [facility] Address [address] [place] [address] Phone Care Team Providers Care Knitted Cloth Examiner Name Role Phone Star LOPEZ, Prosper Gordon Unavailable [phone] KINZA ENG Unavailable [phone] Reason for Referral Date Encounter Description Provider Reason for Referral 08/02/22 Post Op Chesadam Goff PA-C Refe rral To Physician 06/20/22 Post Op Margarita Goff PA-C Refe rral To Physician 05/17/22 Physician Specified Prosper Graves MD Referral To Physician Problems Includes: Active, inactive, and resolved Problems All Visits Onset Date Resolved Date Provider Condition S tatus History of Joint Pain Shoulder Right 05/17/2022 Prosper Graves MD Active Last Documented On 2 10:25AM ; [facility] Plan of Treatment Instructions to patient Intervention and counseling on cessation of tobacco use Last Documented On 3 1:25PM ; [facility] Lose weight Last Documented On 3 1:25PM ; [facility] Intervention and counseling on cessation of tobacco use Last Documented On 3 10:59AM ; [facility] Lose weight Last Documented On 3 10:59AM ; [facility] Intervention and counseling on cessation of tobacco use Last Documented On 2 2:01PM ; [facility] Lose weight Last Documented On 2 2:01PM ; [facility] Intervention and counseling on cessation of tobacco use Last Documented On 2 2:10PM ; [facility] Lose weight Last Documented On 2 2:10PM ; [facility] Intervention and counseling on cessation of tobacco use Last Documented On 2 10:38AM ; [facility] Lose weight Last Documented On 2 10:38AM ; [facility] Assessments Includes: Assessments for all patient encounters Findings Encounter Date Overweight Follow Up with Margarita hatfield PA-C 09/28/2022 Last Documented On 4 2:30PM ; [facility] Instructions Includes: Instructions for all patient encounters Instructions to patient Intervention and counseling on cessation of tobacco use Last Documented On 3 1:25PM ; [facility] Lose weight Last Documented On 3 1:25PM ; [facility] Intervention and counseling on cessation of tobacco use Last Documented On 3 10:59AM ; [facility] Lose weight Last Documented On 3 10:59AM ; [facility] Intervention and counseling on cessation of tobacco use Last Documented On 2 2:01PM ; [facility] Lose weight Last Documented On 2 2:01PM ; [facility] Intervention and counseling on cessation of tobacco use Last Documented On 2 2:10PM ; [facility] Lose weight Last Documented On 2 2:10PM ; [facility] Intervention and counseling on cessation of tobacco use Last Documented On 2 10:38AM ; [facility] Lose weight Last Documented On 2 10:38AM ; [facility] Medical Equipment - Implanted Devices Includes: Current and historical Devices No Medical Equipment Recorded Medications Includes: Current and historical Medications Current Medications (continue as prescribed) buPROPion HCl ER (SR) 150 MG Oral Tablet Extended Release 12 Hour 05/04/2022 Provider: Amada Benton NP Diagnosis: Last Documented On 2 3:34PM By Jennifer Mahmood ; [facility] Past Medications on file traMADol HCl 50 MG Oral Tablet 10/03/2022 - 10/06/2022 Provider: Prosper malik MD Diagnosis: ONE TABLET BY MOUTH three times a day Last Documented On 3 2:58PM By Prosper Graves ; [facility] Cyclobenzaprine HCl 5 MG Ora l Tablet 09/28/2022 - 10/12/2022 Provider: Prosper malik MD Diagnosis: 1 every bedtime Last Documented On 3 11:15AM By Radha Walker ; [facility] Cyclobenzaprine HCl 5 MG Ora l Tablet 08/02/2022 - 08/09/2022 Provider: Prosper malik MD Diagnosis: three times a day 1 TABLET 3 TIMES A DAY Last Documented On 2 2:26PM By Radha Walker ; [facility] Ondansetron HCl 4 MG Oral Tablet 06/05/2022 - 06/15/2022 Provider: Prosper malik MD Diagnosis: 1 q 8 hours prn nausea 1 q 8 hours prn post op nausea Last Documented On 2 7:50AM By Prosper Graves ; [facility] oxyCODONE HCl 5 MG Oral Tablet 06/05/2022 - 06/10/2022 Provider: Prosper malik MD Diagnosis: 1-2 po q 4-6h prn post op pain Last Documented On 2 7:50AM By Prosper Graves ; [facility] Medications Administered Includes: Administered Medications in patient's chart No Administered Medications Recorded Results Includes: Results from 06/26/2024 through 06/26/2025 No Results Recorded For Specified Dates History of Present Illness History of Present Illness not supported for this document type No History of Present Illness Recorded Social History Description Last Updated Alcohol use 05/17/2022 Last Documented On 2 11:33AM ; [facility] No caffeine use 05/17/2022 Last Documented On 2 11:33AM ; [facility] No recent change in diet 05/17/2022 Last Documented On 2 11:33AM ; [facility] Not exercising regularly 05/17/2022 Last Documented On 2 11:33AM ; [facility] Not using drugs 05/17/2022 Last Documented On 2 11:33AM ; [facility] Yes, current smoker. 05/17/2022 Last Documented On 2 11:33AM ; [facility] Not a tobacco non-user 05/17/2022 Last Documented On 2 11:33AM ; [facility] Tobacco use 05/17/2022 Last Documented On 2 11:33AM ; [facility] Smoking Status Unknown Medical History Includes: Medical History in patient's chart Description Last Updated Past medical and surgical history non-co ntributory 05/17/2022 Last Documented On 2 11:33AM ; [facility] No recent immunization for flu 2 Last Documented On 2 11:33AM ; [facility] No recent immunization for pneumococcal pneumonia 05/17/2022 Last Documented On 2 11:33AM ; [facility] Family History Includes: Family History in patient's chart Description Last Updated No significant family history 05/17/2022 Last Documented On 2 11:33AM ; [facility] Review of Systems Review of Systems not supported for this document type No Review of Systems Recorded Mental Status Description No anxiety Functional Status No Functional Status Recorded Physical Exam Physical Exam not supported for this document type No Physical Exam Recorded Immunizations Includes: Immunizations in patient's chart Vaccine Dose # Date Site Reaction(s) Status Source Influenza 1 06/20/2022 Complete (Refused - Patient objection) [facility] Last Documented On 2 2:11PM ; [facility] PCV (Pneumovax 23) 1 06/20/2022 Complete (Refused - Patient objection) [facility] Last Documented On 2 2:11PM ; [facility] Td 1 06/20/2022 Complete (Refused - Patient objection) [facility] Last Documented On 2 2:11PM ; [facility] Allergies Includes: Active, inactive, and resolved Allergies No Known Allergies Insurance Includes: Active Insurance Policies Plan Name Member ID Group # Subscriber Relationship Effect adelita Dates 1 - [facility] [id number] Roberth Harper Self 09/24/19 22 - Unknown Clinical Notes Includes: Signed Clinical Notes starting from 09/07/2022 No Clinical Notes Recorded
--- OUTSIDE RECORDS SUMMARY | 2025-06-26 11:12 | XMS_ITS | Clinical Summary ---
Author Organization [facility] Address [address] [place] [address] Phone Care Team Providers Care Carding Supervisor Name Role Phone Star LOPEZ, Prosper Gordon Unavailable [phone] KINZA ENG Unavailable [phone] Reason for Referral Date Encounter Description Provider Reason for Referral 06/20/22 Post Op Margarita Goff PA-C Refe rral To Physician Reason for Visit and Chief Complaint The Chief Complaint is: Right shoulder pain Problems Includes: Problems addressed during this encounter and other active Problems All Visits Onset Date Resolved Date Provider Condition S tatus History of Joint Pain Shoulder Right 05/17/2022 Prosper Graves MD Active Last Documented On 2 10:25AM ; [facility], [facility] Plan of Treatment Patient understands the restrictions postoperatively. Operative details were explained to the patient. Sling use will be continued. Patient can have active motion of the elbow, forearm, wrist and hand. Physical therapy referral will be given if required. Patient will follow-up as scheduled. If there is any questions or concerns they can call our office. - Last Documented On 06/20/2022 2:29PM ; [facility], [facility] Instructions to patient Intervention and counseling on cessation of tobacco use Last Documented On 2 2:10PM ; [facility], [facility] Lose weight Last Documented On 2 2:10PM ; [facility] Assessments Includes: Assessments from this encounter Findings Right cuff repair - Last Documented On 06/20/2022 2:29PM ; [facility], [facility] Instructions Includes: Instructions from this encounter Instructions to patient Intervention and counseling on cessation of tobacco use Last Documented On 2 2:10PM ; [facility] Lose weight Last Documented On 2 2:10PM ; [facility] Medical Equipment - Implanted Devices Includes: Current Devices No Medical Equipment Recorded Medications Includes: Medications discussed during this encounter and other current Medications Current Medications (continue as prescribed) buPROPion HCl ER (SR) 150 MG Oral Tablet Extended Release 12 Hour 05/04/2022 Provider: Amada Benton NP Diagnosis: Last Documented On 2 3:34PM By Jennifer Mahmood ; [facility], [facility] Past Medications on file traMADol HCl 50 MG Oral Tablet 10/03/2022 - 10/06/2022 Provider: Prosper malik MD Diagnosis: ONE TABLET BY MOUTH three times a day Last Documented On 3 2:58PM By Prosper Graves ; [facility] Cyclobenzaprine HCl 5 MG Ora l Tablet 09/28/2022 - 10/12/2022 Provider: Prosper malik MD Diagnosis: 1 every bedtime Last Documented On 3 11:15AM By Radha Walker ; [facility] Cyclobenzaprine HCl 5 MG Ora l Tablet 08/02/2022 - 08/09/2022 Provider: Prosper mailk MD Diagnosis: three times a day 1 TABLET 3 TIMES A DAY Last Documented On 2 2:26PM By Radha Walker ; [facility] Ondansetron HCl 4 MG Oral Tablet 06/05/2022 - 06/15/2022 Provider: Prosper malik MD Diagnosis: 1 q 8 hours prn nausea 1 q 8 hours prn post op nausea Last Documented On 2 7:50AM By Prosper Graves ; [facility] oxyCODONE HCl 5 MG Oral Tablet 06/05/2022 - 06/10/2022 Provider: Prosper malik MD Diagnosis: 1-2 po q 4-6h prn post op pain Last Documented On 2 7:50AM By Prosper Graves ; [facility], [facility] Medications Administered Includes: Administered Medications from this encounter No Administered Medications Recorded Vital Signs Includes: Vital Signs from this encounter Vital Name 06/20/2022 02:19P Blood Pressure Sitting (mmHg) 126/66 Pulse Rate-Sitting (bpm) 97 Height (in) 65 Weight (lb) 174 Body Mass Index (kg/m2) 29.0 Body Surface Area (m2) 1.9 Note: hdv Last Documented: On 06/20/2022 2:20PM ; [facility], [facility] Results Includes: Results discussed during this encounter [...] Alcohol use 05/17/2022 Last Documented On 2 2:10PM ; [facility] No caffeine use 05/17/2022 Last Documented On 2 2:10PM ; [facility] No recent change in diet 05/17/2022 Last Documented On 2 2:10PM ; [facility] Not exercising regularly 05/17/2022 Last Documented On 2 2:10PM ; [facility] Not using drugs 05/17/2022 Last Documented On 2 2:10PM ; [facility] Yes, current smoker. 05/17/2022 Last Documented On 2 2:10PM ; [facility] Not a tobacco non-user 05/17/2022 Last Documented On 2 2:10PM ; [facility] Tobacco use 05/17/2022 Last Documented On 2 2:10PM ; [facility] Smoking Status Unknown Procedures and Surgical History Includes: Procedures from this encounter Procedures Code Diagnosis Performing Provider Service L ocation Service Date intervention and counseling on cessation of tobacco use 4000F Last Documented On 2 2:10PM ; [facility] use of tobacco assessment performed 1000F Last Documented On 2 2:10PM ; [facility] patient screened for future fall risk: no documentation of any fall with injury in past year 1100F Last Documented On 2 2:10PM ; [facility] referral to physician Last Documented On 2 2:10PM ; [facility] Medical History Includes: Medical History addressed during this encounter Description Last Updated Past medical and surgical history non-co ntributory 05/17/2022 Last Documented On 2 2:10PM ; [facility] No recent immunization for flu 2 Last Documented On 2 2:10PM ; [facility] No recent immunization for pneumococcal pneumonia 05/17/2022 Last Documented On 2 2:10PM ; [facility] Family History Includes: Family History addressed during this encounter Description Last Updated No significant family history 05/17/2022 Last Documented On 2 2:10PM ; [facility] Review of Systems Includes: Review of Systems [...] Exam Includes: Physical Exam from this encounter Immunizations Includes: Immunizations addressed during this encounter Vaccine Dose # Date Site Reaction(s) Status Source Influenza 1 06/20/2022 Complete (Refused - Patient objection) [facility], [facility] Last Documented On 2 2:11PM ; [facility], [facility] PCV (Pneumovax 23) 1 06/20/2022 Complete (Refused - Patient objection) [facility] Last Documented On 2 2:11PM ; [facility] Td 1 06/20/2022 Complete (Refused - Patient objection) [facility], [facility] Last Documented On 2 2:11PM ; [facility], [facility] Allergies Includes: Active Allergies No Known Allergies Encounters Encounter Provider Location Date Check-In Time Check- Out Time Diagnosis Post Op Margarita Goff PA-C [facility] 2 2:03PM 2:29PM Insurance Includes: Active Insurance Policies Plan Name Member ID Group # Subscriber Relationship Effect adelita Dates 1 - [facility] [id number] Roberth Harper Self 09/24/19 22 - Unknown Clinical Notes Includes: Clinical Notes from this encounter No Clinical Notes Recorded
--- OUTSIDE RECORDS SUMMARY | 2025-06-26 11:12 | XMS_ITS | Clinical Summary ---
Author Organization [facility] , [facility] Address [address] [place] [address] Phone Care Team Providers Care Store Loss Prevention Manager Name Role Phone Star LOPEZ, Prosper Gordon Unavailable [phone] KINZA ENG Unavailable [phone] Reason for Visit and Chief Complaint [Patient Encounter] Problems Includes: Problems addressed during this encounter and other active Problems All Visits Onset Date Resolved Date Provider Condition S tatus History of Joint Pain Shoulder Right 05/17/2022 Prosper Graves MD Active Last Documented On 2 10:25AM ; [facility] Plan of Treatment No Plan of Treatment Recorded Assessments Includes: Assessments from this encounter No Assessments Recorded Medical Equipment - Implanted Devices Includes: Current Devices No Medical Equipment Recorded Medications Includes: Medications discussed during this encounter and other current Medications Current Medications (continue as prescribed) buPROPion HCl ER (SR) 150 MG Oral Tablet Extended Release 12 Hour 05/04/2022 Provider: Amada Benton NP Diagnosis: Last Documented On 2 3:34PM By Jennifer Mahmood ; [facility] Medications Administered Includes: Administered Medications from this encounter No Administered Medications Recorded Results Includes: Results discussed during this encounter No Results Recorded For Specified Dates History of Present Illness Includes: History of Present Illness from this encounter No History of Present Illness Recorded Social History No Social History Recorded - Smoking Status Unknown Medical History Includes: Medical History addressed during this encounter No Medical History Recorded Family History Includes: Family History addressed during this encounter No Family History Recorded Review of Systems Includes: Review of Systems from this encounter No Review of Systems Recorded Mental Status Includes: Mental Status from this encounter No Mental Status Recorded Functional Status Includes: Functional Status from this encounter No Functional Status Recorded Physical Exam Includes: Physical Exam from this encounter No Physical Exam Recorded Allergies Includes: Active Allergies No Known Allergies Encounters Encounter Provider Location Date Check-In Time Check- Out Time Diagnosis [Patient Encounter] Prosper Graves MD [facility] 2 5:12PM 11:59PM Insurance Includes: Active Insurance Policies Plan Name Member ID Group # Subscriber Relationship Effect adelita Dates 1 - [facility] [id number] Roberth Harper Self 09/24/19 22 - Unknown Clinical Notes Includes: Clinical Notes from this encounter No Clinical Notes Recorded
--- OUTSIDE RECORDS SUMMARY | 2025-06-26 11:12 | XMS_ITS ---
Care Plan - [facility], [facility] Created on: June 26, 2025 Roberth Harper : 1975 Sex: Male Author Organization [facility] , [facility] Address [address] [place] [address] Phone Care Team Providers Care Director Erp Name Role Phone Star LOPEZ, Prosper Gordon Unavailable [phone] KINZA EGN Unavailable [phone]
--- OUTSIDE RECORDS SUMMARY | 2025-06-26 11:12 | XMS_ITS | Clinical Summary ---
Author Organization [facility] , [facility] Address [address] [place] [address] Phone Care Team Providers Care High Reach Operator Name Role Phone Star LOPEZ, Prosper Gordon Unavailable [phone] KINZA ENG Unavailable [phone] Reason for Visit and Chief Complaint The Chief Complaint is: Right shoulder pain Problems Includes: Problems addressed during this encounter and other active Problems All Visits Onset Date Resolved Date Provider Condition S tatus History of Joint Pain Shoulder Right 05/17/2022 Prosper Graves MD Active Last Documented On 2 10:25AM ; [facility] Plan of Treatment Patient is at I. We will return the patient to full release and normal activities. They can follow-up as needed. No further questions. if there is any recurrent pain or trauma would be happy to see him and reevaluate him. - Last Documented On 12/20/2023 8:20AM ; [facility] Instructions to patient Intervention and counseling on cessation of tobacco use Last Documented On 3 1:25PM ; [facility] Lose weight Last Documented On 3 1:25PM ; [facility] Assessments Includes: Assessments from this encounter Findings rotator cuff repair - Last Documented On 12/20/2023 8:20AM ; [facility] Instructions Includes: Instructions from this encounter Instructions to patient Intervention and counseling on cessation of tobacco use Last Documented On 3 1:25PM ; [facility] Lose weight Last Documented On 3 1:25PM ; [facility] Medical Equipment - Implanted Devices Includes: Current Devices No Medical Equipment Recorded Medications Includes: Medications discussed during this encounter and other current Medications Current Medications (continue as prescribed) buPROPion HCl ER (SR) 150 MG Oral Tablet Extended Release 12 Hour 05/04/2022 Provider: Amada Benton NP Diagnosis: Last Documented On 2 3:34PM By Jennifer Mahmood ; [facility] Past Medications on file traMADol HCl 50 MG Oral Tablet 10/03/2022 - 10/06/2022 Provider: Prosper malik MD Diagnosis: ONE TABLET BY MOUTH three times a day Last Documented On 3 2:58PM By Prosper Graves ; [facility] Cyclobenzaprine HCl 5 MG Ora l Tablet 09/28/2022 - 10/12/2022 Provider: Prosper malik MD Diagnosis: 1 every bedtime Last Documented On 3 11:15AM By Radha Walker ; [facility] Cyclobenzaprine HCl 5 MG Ora l Tablet 08/02/2022 - 08/09/2022 Provider: Prosper malik MD Diagnosis: three times a day 1 TABLET 3 TIMES A DAY Last Documented On 2 2:26PM By Radha Walker ; [facility] Ondansetron HCl 4 MG Oral Tablet 06/05/2022 - 06/15/2022 Provider: Prosper malik MD Diagnosis: 1 q 8 hours prn nausea 1 q 8 hours prn post op nausea Last Documented On 2 7:50AM By Prosper Graves ; [facility] oxyCODONE HCl 5 MG Oral Tablet 06/05/2022 - 06/10/2022 Provider: Prosper malik MD Diagnosis: 1-2 po q 4-6h prn post op pain Last Documented On 2 7:50AM By Prosper Graves ; [facility] Medications Administered Includes: Administered Medications from this encounter No Administered Medications Recorded Vital Signs Includes: Vital Signs from this encounter Vital Name 11/10/2022 01:25P Height (in) 65 Weight (lb) 174 Body Mass Index 29 Body Surface Area 1.9 Note: hdv Last Documented: On 11/10/2022 1:25PM ; [facility] Results Includes: Results discussed during this encounter [...] Alcohol use 05/17/2022 Last Documented On 3 1:25PM ; [facility] No caffeine use 05/17/2022 Last Documented On 3 1:25PM ; [facility] No recent change in diet 05/17/2022 Last Documented On 3 1:25PM ; [facility] Not exercising regularly 05/17/2022 Last Documented On 3 1:25PM ; [facility] Not using drugs 05/17/2022 Last Documented On 3 1:25PM ; [facility] Yes, current smoker. 05/17/2022 Last Documented On 3 1:25PM ; [facility] Not a tobacco non-user 05/17/2022 Last Documented On 3 1:25PM ; [facility] Tobacco use 05/17/2022 Last Documented On 3 1:25PM ; [facility], [facility] Smoking Status Unknown Procedures and Surgical History Includes: Procedures from this encounter Procedures Code Diagnosis Performing Provider Service L ocation Service Date intervention and counseling on cessation of tobacco use 4000F Last Documented On 3 1:25PM ; [facility] use of tobacco assessment performed 1000F Last Documented On 3 1:25PM ; [facility] patient screened for future fall risk: no documentation of any fall with injury in past year 1100F Last Documented On 3 1:25PM ; [facility] Medical History Includes: Medical History addressed during this encounter Description Last Updated Past medical and surgical history non-co ntributory 05/17/2022 Last Documented On 3 1:25PM ; [facility] No recent immunization for flu 2 Last Documented On 3 1:25PM ; [facility] No recent immunization for pneumococcal pneumonia 05/17/2022 Last Documented On 3 1:25PM ; [facility] Family History Includes: Family History addressed during this encounter Description Last Updated No significant family history 05/17/2022 Last Documented On 3 1:25PM ; [facility] Review of Systems Includes: Review of [...] Date Check-In Time Check- Out Time Diagnosis Follow Up Margarita Goff PA-C [facility] 3 1:19PM 1:41PM Insurance Includes: Active Insurance Policies Plan Name Member ID Group # Subscriber Relationship Effect adelita Dates 1 - [facility] [id number] Roberth Harper Self 09/24/19 22 - Unknown Clinical Notes Includes: Clinical Notes from this encounter * Progress note Date Encounter Last Documented by 11/10/2022 Follow Up Last documented on 12/20/2023; 8:20 AM, Margarita Goff PA-C; [facility] Active Problems & Conditions - History of [...] allergic reaction. Physical Findings - Vitals taken 11/10/2022 01:25 pm hdv Height 65 in Weight 174 lbs Body Mass Index 29 kg/m2 Body Surface Area 1.9 m2 Standard Measurements: - Patient was overweight. General Exam: The patient is awake and alert. No acute distress. Normal mood and affect for age. Well groomed and nourished Neuro: Sensation was intact to light touch over the extremity. Vascular: +2 radial pulses. No edema. Derm: No signs of active infection. No acute skin changes. Musculoskeletal: Normal gait and station. No muscle atrophy. No joint effusion. No muscle or bony deformity active forward flexion is completed he has no pain or weakness with cuff testing Assessment rotator cuff repair Therapy - Intervention and counseling on cessation of tobacco use. Counseling/Education - Lose weight Plan Patient is at [facility]. We will return the patient to full release and normal activities. They can follow-up as needed. No further questions. if there is any recurrent pain or trauma would be happy to see him and reevaluate him. Notes This dictation was done with voice recognition software and may contain errors and omissions. Practice Management Use of tobacco assessment performed Patient screened for future fall risk: no documentation of any fall with injury in past year. Care Team - KINZA ENG
== END 2025-06-25 23:59 | disposition home or self-care (01) ==
LOC: LAB.DROPOF 06-26 11:08
PROVIDERS: PCP Internal Medicine; Visit Provider Internal Medicine
DX: B34.9 Viral infection, unspecified (principal)
CPT/HCPCS: 87635

== ENCOUNTER 2025-06-26 13:15 | Outpatient (CLI) | payer BC, SELFPAY ==
--- OUTSIDE RECORDS SUMMARY | 2025-06-26 13:18 | XMS_ITS ---
Care Plan - [facility], [facility] Created on: June 26, 2025 Roberth Harper : 1975 Sex: Male Author Organization [facility] Address [address] [place] [address] Phone Care Team Providers Care Assistant Community Manager Name Role Phone Star LOPEZ, Prosper Gordon Unavailable [phone] KINZA ENG Unavailable [phone]
--- OUTSIDE RECORDS SUMMARY | 2025-06-26 13:18 | XMS_ITS | Clinical Summary ---
Author Organization [facility] , [facility] Address [address] [place] [address] Phone Care Team Providers Care Vrt Mechanic Name Role Phone Star LOPEZ, Prosper Gordon Unavailable [phone] KINZA ENG Unavailable [phone] Reason for Visit and Chief Complaint [Patient Encounter] Problems Includes: Problems addressed during this encounter and other active Problems All Visits Onset Date Resolved Date Provider Condition S tatus History of Joint Pain Shoulder Right 05/17/2022 Prosper Graves MD Active Last Documented On 2 10:25AM ; [facility] Plan of Treatment No Plan of Treatment [...] On 2 3:34PM By Jennifer Mahmood ; [facility] Medications Administered Includes: Administered Medications from [...] Time Diagnosis [Patient Encounter] Prosper Graves MD [facility] 2 5:12PM 11:59PM Insurance Includes: Active Insurance Policies Plan Name Member ID Group # Subscriber Relationship Effect adelita Dates 1 - [facility] [id number] Roberth Harper Self 09/24/19 22 - Unknown Clinical Notes Includes: Clinical Notes from this encounter No Clinical Notes Recorded
--- OUTSIDE RECORDS SUMMARY | 2025-06-26 13:18 | XMS_ITS ---
Author Organization [facility] Address [address] [place] [address] Phone Care Team Providers Care Music Therapist Name Role Phone Star LOPEZ, Prosper Gordon Unavailable [phone] KINZA ENG Unavailable [phone] Reason for Referral Date Encounter Description Provider [...] use Last Documented On 3 1:25PM ; [facility] Lose weight Last Documented On 3 1:25PM ; [facility] Intervention and counseling on cessation of tobacco use Last Documented On 3 10:59AM ; [facility] Lose weight Last Documented On 3 10:59AM ; [facility] Intervention and counseling on cessation of tobacco use Last Documented On 2 2:01PM ; [facility] Lose weight Last Documented On 2 2:01PM ; [facility] Intervention and counseling on [...] On 3 2:58PM By Prosper Graves ; [facility] Cyclobenzaprine HCl 5 MG Ora l Tablet 09/28/2022 - 10/12/2022 Provider: Prosper malik MD Diagnosis: 1 every bedtime Last Documented On 3 11:15AM By Radha Walker ; [facility] Cyclobenzaprine HCl 5 MG Ora l Tablet 08/02/2022 - 08/09/2022 Provider: Prosper malik MD Diagnosis: three times a day 1 TABLET 3 TIMES A DAY Last Documented On 2 2:26PM By Radha Walker ; [facility] Ondansetron HCl 4 MG Oral Tablet 06/05/2022 - 06/15/2022 Provider: Prosper malik MD Diagnosis: 1 q 8 hours prn nausea 1 q 8 hours prn post op nausea Last Documented On 2 7:50AM By Prosper Graves ; [facility] oxyCODONE HCl 5 MG Oral Tablet 06/05/2022 - 06/10/2022 Provider: Prosper malik MD Diagnosis: 1-2 po q 4-6h prn post op pain Last Documented On 2 7:50AM By Prosper Graves ; [facility] Medications Administered Includes: Administered Medications in patient's chart No Administered Medications Recorded Results Includes: Results from 06/26/2024 through 06/26/2025 No Results Recorded For Specified Dates History of Present Illness History of Present Illness not supported for this document type No History of Present Illness Recorded Social History Description Last Updated Alcohol use 05/17/2022 Last Documented On 2 11:33AM ; [facility] No caffeine use 05/17/2022 Last Documented On 2 11:33AM ; [facility] No recent change in diet 05/17/2022 Last Documented On 2 11:33AM ; [facility] Not exercising regularly 05/17/2022 Last Documented On 2 11:33AM ; [facility], [facility] Not using drugs 05/17/2022 Last Documented On 2 11:33AM ; [facility] Yes, current smoker. 05/17/2022 Last Documented On 2 11:33AM ; [facility], [facility] Not a tobacco non-user 05/17/2022 Last Documented On 2 11:33AM ; [facility] Tobacco use 05/17/2022 Last Documented On 2 11:33AM ; [facility], [facility] Smoking Status Unknown Medical History Includes: Medical History in patient's chart Description Last Updated Past medical and surgical history non-co ntributory 05/17/2022 Last Documented On 2 11:33AM ; [facility] No recent immunization for flu 2 Last Documented On 2 11:33AM ; [facility] No recent immunization for pneumococcal pneumonia 05/17/2022 Last Documented On 2 11:33AM ; [facility] Family History Includes: Family History in patient's chart Description Last Updated No significant family history 05/17/2022 Last Documented On 2 11:33AM ; [facility] Review of Systems Review of Systems [...] 1 06/20/2022 Complete (Refused - Patient objection) [facility], [facility] Last Documented On 2 2:11PM ; [facility] PCV (Pneumovax 23) 1 06/20/2022 Complete (Refused - Patient objection) [facility], [facility] Last Documented On 2 2:11PM ; [facility] Td 1 06/20/2022 Complete (Refused - Patient objection) [facility] Last Documented On 2 2:11PM ; [facility] Allergies Includes: Active, inactive, and resolved Allergies No Known Allergies Insurance Includes: Active Insurance Policies Plan Name Member ID Group # Subscriber Relationship Effect adelita Dates 1 - [facility] [id number] Roberth Harper Self 09/24/19 22 - Unknown Clinical Notes Includes: Signed Clinical Notes starting from 09/07/2022 No Clinical Notes Recorded
--- OUTSIDE RECORDS SUMMARY | 2025-06-26 13:18 | XMS_ITS | Clinical Summary ---
Author Organization [facility] Address [address] [place] [address] Phone Care Team Providers Care Long Winder Tender Name Role Phone Star LOPEZ, Prosper Gordon Unavailable [phone] KINZA ENG Unavailable [phone] Reason for Referral Date Encounter Description Provider [...] Active Last Documented On 2 10:25AM ; [facility], [facility] Plan of Treatment Patient understands the restrictions [...] - Last Documented On 06/20/2022 2:29PM ; [facility], [facility] Instructions to patient Intervention and counseling on cessation of tobacco use Last Documented On 2 2:10PM ; [facility], [facility] Lose weight Last Documented On 2 2:10PM ; [facility], [facility] Assessments Includes: Assessments from this encounter Findings Right cuff repair - Last Documented On 06/20/2022 2:29PM ; [facility], [facility] Instructions Includes: Instructions from this encounter Instructions to patient Intervention and counseling on cessation of tobacco use Last Documented On 2 2:10PM ; [facility] Lose weight Last Documented On 2 2:10PM ; [facility] Medical Equipment - Implanted Devices Includes: Current Devices No Medical Equipment Recorded Medications Includes: Medications discussed during this encounter and other current Medications Current Medications (continue as prescribed) buPROPion HCl ER (SR) 150 MG Oral Tablet Extended Release 12 Hour 05/04/2022 Provider: Amada Benton NP Diagnosis: Last Documented On 2 3:34PM By Jennifer Mahmood ; [facility], [facility] Past Medications on file traMADol HCl 50 MG Oral Tablet 10/03/2022 - 10/06/2022 Provider: Prosper malik MD Diagnosis: ONE TABLET BY MOUTH three times a day Last Documented On 3 2:58PM By Prosper Graves ; [facility] Cyclobenzaprine HCl 5 MG Ora l Tablet 09/28/2022 - 10/12/2022 Provider: Prosper malik MD Diagnosis: 1 every bedtime Last Documented On 3 11:15AM By Radha Walker ; [facility] Cyclobenzaprine HCl 5 MG Ora l Tablet 08/02/2022 - 08/09/2022 Provider: Prosper malik MD Diagnosis: three times a day 1 TABLET 3 TIMES A DAY Last Documented On 2 2:26PM By Radha Walker ; [facility] Ondansetron HCl 4 MG Oral Tablet 06/05/2022 - 06/15/2022 Provider: Prosper malik MD Diagnosis: 1 q 8 hours prn nausea 1 q 8 hours prn post op nausea Last Documented On 2 7:50AM By Prosper Graves ; [facility] oxyCODONE HCl 5 MG Oral Tablet 06/05/2022 - 06/10/2022 Provider: Prosper malik MD Diagnosis: 1-2 po q 4-6h prn post op pain Last Documented On 2 7:50AM By Prosper Graves ; [facility], [facility] Medications Administered Includes: Administered Medications from this encounter No Administered Medications Recorded Vital Signs Includes: Vital Signs from this encounter Vital Name 06/20/2022 02:19P Blood Pressure Sitting (mmHg) 126/66 Pulse Rate-Sitting (bpm) 97 Height (in) 65 Weight (lb) 174 Body Mass Index (kg/m2) 29.0 Body Surface Area (m2) 1.9 Note: hdv Last Documented: On 06/20/2022 2:20PM ; [facility] Results Includes: Results discussed during this encounter [...] Documented On 2 2:10PM ; [facility] Not exercising regularly 05/17/2022 Last Documented On 2 2:10PM ; [facility] Not using drugs 05/17/2022 Last Documented On 2 2:10PM ; [facility] Yes, current smoker. 05/17/2022 Last Documented On 2 2:10PM ; [facility] Not a tobacco non-user 05/17/2022 Last Documented On 2 2:10PM ; [facility] Tobacco use 05/17/2022 Last Documented On 2 2:10PM ; [facility] Smoking Status Unknown Procedures and Surgical History Includes: Procedures from this encounter Procedures Code Diagnosis Performing Provider Service L ocation Service Date intervention and counseling on cessation of tobacco use 4000F Last Documented On 2 2:10PM ; [facility] use of tobacco assessment performed 1000F Last Documented On 2 2:10PM ; [facility] patient screened for future fall risk: no documentation of any fall with injury in past year 1100F Last Documented On 2 2:10PM ; [facility] referral to physician Last Documented On 2 2:10PM ; [facility] Medical History Includes: Medical History addressed during this encounter Description Last Updated Past medical and surgical history non-co ntributory 05/17/2022 Last Documented On 2 2:10PM ; [facility] No recent immunization for flu 2 Last Documented On 2 2:10PM ; [facility] No recent immunization for pneumococcal pneumonia 05/17/2022 Last Documented On 2 2:10PM ; [facility] Family History Includes: Family History addressed during this encounter Description Last Updated No significant family history 05/17/2022 Last Documented On 2 2:10PM ; [facility] Review of Systems Includes: Review [...] 1 06/20/2022 Complete (Refused - Patient objection) [facility] Last Documented On 2 2:11PM ; [facility] PCV (Pneumovax 23) 1 06/20/2022 Complete (Refused - Patient objection) [facility] Last Documented On 2 2:11PM ; [facility] Td 1 06/20/2022 Complete (Refused - Patient objection) [facility] Last Documented On 2 2:11PM ; [facility] Allergies Includes: Active Allergies No Known Allergies Encounters Encounter Provider Location Date Check-In Time Check- Out Time Diagnosis Post Op Margarita Goff PA-C [facility] 2 2:03PM 2:29PM Insurance Includes: Active Insurance Policies Plan Name Member ID Group # Subscriber Relationship Effect adelita Dates 1 - [facility] [id number] Roberth Harper Self 09/24/19 22 - Unknown Clinical Notes Includes: Clinical Notes from this encounter No Clinical Notes Recorded
--- OUTSIDE RECORDS SUMMARY | 2025-06-26 13:18 | XMS_ITS | Clinical Summary ---
Author Organization [employer] ([place], [place], [place], [place]) [address] [facility] [facility] [place] [address] Care Team Providers Care Director Retirement Name Role Phone Unavailable Primary Care Provider [...]
--- OUTSIDE RECORDS SUMMARY | 2025-06-26 13:18 | XMS_ITS | Clinical Summary ---
Author Organization [facility] , [facility] Address [address] [place] [address] Phone Care Team Providers Care Dry Cure Worker Name Role Phone Star LOPEZ, Prosper Gordon Unavailable [phone] KINZA ENG Unavailable [phone] Reason for Referral Date Encounter Description Provider [...] Active Last Documented On 2 10:25AM ; [facility], [facility] Plan of Treatment He is doing very well he has some mild muscle spasm descriptive type pain but nothing really reproducible today. He can continue in therapy. He is likely to have this completely rehabbed in 4-5 months postop - Last Documented On 08/04/2022 9:10AM ; [facility], [facility] Instructions to patient Intervention and counseling on cessation of tobacco use Last Documented On 2 2:01PM ; [facility], [facility] Lose weight Last Documented On 2 2:01PM ; [facility], [facility] Assessments Includes: Assessments from this encounter Findings Right cuff repair - Last Documented On 08/04/2022 9:10AM ; [facility], [facility] Instructions Includes: Instructions from this encounter Instructions to patient Intervention and counseling on cessation of tobacco use Last Documented On 2 2:01PM ; [facility], [facility] Lose weight Last Documented On 2 2:01PM ; [facility], [facility] Medical Equipment - Implanted Devices Includes: [...] 3 TIMES A DAY Pharma cy: [facility] - [address] [place] [address] S Mk, [id number] - Last Documented On 2 2:26PM By Radha Walker ; [facility], [facility] Current Medications (continue as prescribed) buPROPion HCl ER (SR) 150 MG Oral Tablet Extended Release 12 Hour 05/04/2022 Provider: Amada Benton NP Diagnosis: Last Documented On 2 3:34PM By Jennifer Mahmood ; [facility], [facility] Past Medications on file traMADol HCl 50 MG Oral Tablet 10/03/2022 - 10/06/2022 Provider: Prosper malik MD Diagnosis: ONE TABLET BY MOUTH three times a day Last Documented On 3 2:58PM By Prosper Graves ; [facility] Cyclobenzaprine HCl 5 MG Ora l Tablet 09/28/2022 - 10/12/2022 Provider: Prosper malik MD Diagnosis: 1 every bedtime Last Documented On 3 11:15AM By Radha Walker ; [facility] Ondansetron HCl 4 MG Oral Tablet 06/05/2022 - 06/15/2022 Provider: Prosper malik MD Diagnosis: 1 q 8 hours prn nausea 1 q 8 hours prn post op nausea Last Documented On 2 7:50AM By Prosper Graves ; [facility] oxyCODONE HCl 5 MG Oral [...] Documented: On 08/02/2022 2:04PM ; [facility], [facility] Results Includes: Results discussed during this [...] Documented On 2 2:01PM ; [facility], [facility] No caffeine use 05/17/2022 Last Documented On 2 2:01PM ; [facility], [facility] No recent change in diet 05/17/2022 Last Documented On 2 2:01PM ; [facility], [facility] Not exercising regularly 05/17/2022 Last Documented On 2 2:01PM ; [facility], [facility] Not using drugs 05/17/2022 Last Documented On 2 2:01PM ; [facility], [facility] Yes, current smoker. 05/17/2022 Last Documented On 2 2:01PM ; [facility], [facility] Not a tobacco non-user 05/17/2022 Last Documented On 2 2:01PM ; [facility], [facility] Tobacco use 05/17/2022 Last Documented On 2 2:01PM ; [facility], [facility] Smoking Status Unknown Procedures and Surgical History Includes: Procedures from this encounter Procedures Code Diagnosis Performing Provider Service L ocation Service Date intervention and counseling on cessation of tobacco use 4000F Last Documented On 2 2:01PM ; [facility] use of tobacco assessment performed 1000F Last Documented On 2 2:01PM ; [facility] patient screened for future fall risk: no documentation of any fall with injury in past year 1100F Last Documented On 2 2:01PM ; [facility] follow-up visit in one month Last Documented On 2 2:05PM ; [facility] referral to physician Last Documented On 2 2:01PM ; [facility] Medical History Includes: Medical History addressed during this encounter Description Last Updated Past medical and surgical history non-co ntributory 05/17/2022 Last Documented On 2 2:01PM ; [facility] No recent immunization for flu 2 Last Documented On 2 2:01PM ; [facility] No recent immunization for pneumococcal pneumonia 05/17/2022 Last Documented On 2 2:01PM ; [facility] Family History Includes: Family History addressed during this encounter Description Last Updated No significant family history 05/17/2022 Last Documented On 2 2:01PM ; [facility] Review of Systems Includes: Review of [...] Time Diagnosis Post Op Margarita Goff PA-C [facility] 2 1:49PM 2:15PM Insurance Includes: Active Insurance Policies Plan Name Member ID Group # Subscriber Relationship Effect adelita Dates 1 - [facility] [id number] Roberth Harper Self 09/24/19 22 - Unknown Clinical Notes Includes: Clinical Notes from this encounter No Clinical Notes Recorded
--- OUTSIDE RECORDS SUMMARY | 2025-06-26 13:18 | XMS_ITS | Clinical Summary ---
Author Organization [facility] , [facility] Address [address] [place] [address] Phone Care Team Providers Care Manager Business Process Name Role Phone Star LOPEZ, Prosper Gordon Unavailable [phone] KINZA ENG Unavailable [phone] Reason for Visit and Chief Complaint The Chief Complaint is: Right shoulder pain Problems Includes: Problems addressed during this encounter and other active Problems All Visits Onset Date Resolved Date Provider Condition S tatus History of Joint Pain Shoulder Right 05/17/2022 Prosper Graves MD Active Last Documented On 2 10:25AM ; [facility], [facility] Plan of Treatment Patient is at I. We will return the patient to full release and normal activities. They can follow-up as needed. No further questions. if there is any recurrent pain or trauma would be happy to see him and reevaluate him. - Last Documented On 12/20/2023 8:20AM ; [facility], [facility] Instructions to patient Intervention and counseling on cessation of tobacco use Last Documented On 3 1:25PM ; [facility], [facility] Lose weight Last Documented On 3 1:25PM ; [facility], [facility] Assessments Includes: Assessments from this encounter Findings rotator cuff repair - Last Documented On 12/20/2023 8:20AM ; [facility], [facility] Instructions Includes: Instructions from this encounter Instructions to patient Intervention and counseling on cessation of tobacco use Last Documented On 3 1:25PM ; [facility], [facility] Lose weight Last Documented On 3 1:25PM ; [facility] Medical Equipment - Implanted Devices Includes: Current Devices No Medical Equipment Recorded Medications Includes: Medications discussed during this encounter and other current Medications Current Medications (continue as prescribed) buPROPion HCl ER (SR) 150 MG Oral Tablet Extended Release 12 Hour 05/04/2022 Provider: Amada Betnon NP Diagnosis: Last Documented On 2 3:34PM By Jennifer Mahmood ; [facility] Past Medications on file traMADol HCl 50 MG Oral Tablet 10/03/2022 - 10/06/2022 Provider: Prosper malik MD Diagnosis: ONE TABLET BY MOUTH three times a day Last Documented On 3 2:58PM By Prosper Graves ; [facility] Cyclobenzaprine HCl 5 MG Ora l Tablet 09/28/2022 - 10/12/2022 Provider: Prosper malik MD Diagnosis: 1 every bedtime Last Documented On 3 11:15AM By Radha Walker ; [facility] Cyclobenzaprine HCl 5 MG Ora l Tablet 08/02/2022 - 08/09/2022 Provider: Prosper malik MD Diagnosis: three times a day 1 TABLET 3 TIMES A DAY Last Documented On 2 2:26PM By Radha Walker ; [facility] Ondansetron HCl 4 MG Oral Tablet 06/05/2022 - 06/15/2022 Provider: Prosper malik MD Diagnosis: 1 q 8 hours prn nausea 1 q 8 hours prn post op nausea Last Documented On 2 7:50AM By Prosper Graves ; [facility] oxyCODONE HCl 5 MG Oral Tablet 06/05/2022 - 06/10/2022 Provider: Prosper mlaik MD Diagnosis: 1-2 po q 4-6h prn post op pain Last Documented On 2 7:50AM By Prosper Graves ; [facility], [facility] Medications Administered Includes: Administered Medications from this encounter No Administered Medications Recorded Vital Signs Includes: Vital Signs from this encounter Vital Name 11/10/2022 01:25P Height (in) 65 Weight (lb) 174 Body Mass Index 29 Body Surface Area 1.9 Note: hdv Last Documented: On 11/10/2022 1:25PM ; [facility], [facility] Results Includes: Results discussed during this encounter [...] Documented On 3 1:25PM ; [facility], [facility] No caffeine use 05/17/2022 Last Documented On 3 1:25PM ; [facility], [facility] No recent change in diet 05/17/2022 Last Documented On 3 1:25PM ; [facility], [facility] Not exercising regularly 05/17/2022 Last Documented On 3 1:25PM ; [facility], [facility] Not using drugs 05/17/2022 Last Documented On 3 1:25PM ; [facility], [facility] Yes, current smoker. 05/17/2022 Last Documented On 3 1:25PM ; [facility], [facility] Not a tobacco non-user 05/17/2022 Last Documented On 3 1:25PM ; [facility], [facility] Tobacco use 05/17/2022 Last Documented On 3 1:25PM ; [facility], [facility] Smoking Status Unknown Procedures and Surgical History Includes: Procedures from this encounter Procedures Code Diagnosis Performing Provider Service L ocation Service Date intervention and counseling on cessation of tobacco use 4000F Last Documented On 3 1:25PM ; [facility], [facility] use of tobacco assessment performed 1000F Last Documented On 3 1:25PM ; [facility], [facility] patient screened for future fall risk: no documentation of any fall with injury in past year 1100F Last Documented On 3 1:25PM ; [facility], [facility] Medical History Includes: Medical History addressed during this encounter Description Last Updated Past medical and surgical history non-co ntributory 05/17/2022 Last Documented On 3 1:25PM ; [facility] No recent immunization for flu 2 Last Documented On 3 1:25PM ; [facility] No recent immunization for pneumococcal pneumonia 05/17/2022 Last Documented On 3 1:25PM ; [facility] Family History Includes: Family History addressed during this encounter Description Last Updated No significant family history 05/17/2022 Last Documented On 3 1:25PM ; [facility] Review of Systems Includes: Review of [...] Time Diagnosis Follow Up Margarita Goff PA-C [facility] 3 1:19PM 1:41PM Insurance Includes: Active Insurance Policies Plan Name Member ID Group # Subscriber Relationship Effect adelita Dates 1 - [facility] [id number] Roberth Harper Self 09/24/19 22 - Unknown Clinical Notes Includes: Clinical Notes from this encounter * Progress note Date Encounter Last Documented by 11/10/2022 Follow Up Last documented on 12/20/2023; 8:20 AM, Margarita Goff PA-C; [facility] Active Problems & Conditions - History of [...]
--- OUTSIDE RECORDS SUMMARY | 2025-06-26 13:18 | XMS_ITS | Clinical Summary ---
Author Organization [facility] , [facility] Address [address] [place] [address] Phone Care Team Providers Care Online Project Manager Name Role Phone Star LOPEZ, Prosper Gordon Unavailable [phone] KINZA ENG Unavailable [phone] Reason for Visit and Chief Complaint The Chief Complaint is: Right shoulder pain Problems Includes: Problems addressed during this encounter and other active Problems All Visits Onset Date Resolved Date Provider Condition S tatus History of Joint Pain Shoulder Right 05/17/2022 Prosper Graves MD Active Last Documented On 2 10:25AM ; [facility], [facility] Plan of Treatment Patient is progressing as expected. Rotator cuff repair rehab typically takes between 6- 8 months. The patient will have no restrictions in therapy at this time. They understand the recommendations. Patient will follow-up as scheduled, if there are any issues they can feel free to call the office. - Last Documented On 12/14/2023 2:30PM ; [facility], [facility] Instructions to patient Intervention and counseling on cessation of tobacco use Last Documented On 3 10:59AM ; [facility], [facility] Lose weight Last Documented On 3 10:59AM ; [facility], [facility] Assessments Includes: Assessments from this encounter Findings - Overweight - Last Documented On 12/14/2023 2:30PM ; [facility] Right rotator cuff repair - Last Documented On 12/14/2023 2:30PM ; [facility], [facility] Instructions Includes: Instructions from this encounter Instructions to patient Intervention and counseling on cessation of tobacco use Last Documented On 3 10:59AM ; [facility] Lose weight Last Documented On 3 10:59AM ; [facility] Medical Equipment - Implanted Devices [...] bedtime Pharmacy: [facility] - [address] [place] [address] Mk [place], [phone] - Last Documented On 3 11:15AM By Radha Walker ; [facility], [facility] Current Medications (continue as prescribed) buPROPion HCl ER (SR) 150 MG Oral Tablet Extended Release 12 Hour 05/04/2022 Provider: Amada Benton NP Diagnosis: Last Documented On 2 3:34PM By Jennifer Johnson [facility], [facility] Past Medications on file traMADol HCl 50 MG Oral Tablet 10/03/2022 - 10/06/2022 Provider: Prosper malik MD Diagnosis: ONE TABLET BY MOUTH three times a day Last Documented On 3 2:58PM By Prosper Graves ; [facility] Cyclobenzaprine HCl 5 MG Ora l Tablet 08/02/2022 - 08/09/2022 Provider: Prosper malik MD Diagnosis: three times a day 1 TABLET 3 TIMES A DAY Last Documented On 2 2:26PM By Radha Walker ; [facility] Ondansetron HCl 4 MG Oral Tablet 06/05/2022 - 06/15/2022 Provider: Prosper malik MD Diagnosis: 1 q 8 hours prn nausea 1 q 8 hours prn post op nausea Last Documented On 2 7:50AM By Prosper Graves ; [facility] oxyCODONE HCl 5 MG Oral Tablet 06/05/2022 - 06/10/2022 Provider: Prosper malik MD Diagnosis: 1-2 po q 4-6h prn post op pain Last Documented On 2 7:50AM By Prosper Graves ; [facility], [facility] Medications Administered Includes: Administered Medications from this encounter No Administered Medications Recorded Vital Signs Includes: Vital Signs from this encounter Vital Name 09/28/2022 10:59A Blood Pressure Sitting (mmHg) 135/85 Pulse Rate-Sitting (bpm) 85 Height (in) 65 Weight (lb) 174 Body Mass Index 29 Body Surface Area 1.9 Note: hdv Last Documented: On 09/28/2022 10:59A M ; [facility], [facility] Results Includes: Results discussed during this [...] Documented On 3 10:59AM ; [facility], [facility] No recent change in diet 05/17/2022 Last Documented On 3 10:59AM ; [facility], [facility] Not exercising regularly 05/17/2022 Last Documented On 3 10:59AM ; [facility], [facility] Not using drugs 05/17/2022 Last Documented On 3 10:59AM ; [facility] Yes, current smoker. 05/17/2022 Last Documented On 3 10:59AM ; [facility], [facility] Not a tobacco non-user 05/17/2022 Last Documented On 3 10:59AM ; [facility] Tobacco use 05/17/2022 Last Documented On 3 10:59AM ; [facility] Smoking Status Unknown Procedures and Surgical History Includes: Procedures from this encounter Procedures Code Diagnosis Performing Provider Service L ocation Service Date intervention and counseling on cessation of tobacco use 4000F Last Documented On 3 10:59AM ; [facility], [facility] use of tobacco assessment performed 1000F Last Documented On 3 10:59AM ; [facility], [facility] review of medications documented 1160F Last Documented On 4 2:29PM ; [facility], [facility] Medical History Includes: Medical History addressed during this encounter Description Last Updated Past medical and surgical history non-co ntributory 05/17/2022 Last Documented On 3 10:59AM ; [facility], [facility] No recent immunization for flu 2 Last Documented On 3 10:59AM ; [facility], [facility] No recent immunization for pneumococcal pneumonia 05/17/2022 Last Documented On 3 10:59AM ; [facility], [facility] Family History Includes: Family History addressed during this encounter Description Last Updated No significant family history 05/17/2022 Last Documented On 3 10:59AM ; [facility] Review of Systems Includes: Review [...] Time Diagnosis Follow Up Margarita Goff PA-C [facility] 3 10:55AM 11:04AM Overweight Insurance Includes: Active Insurance Policies Plan Name Member ID Group # Subscriber Relationship Effect adelita Dates 1 - [facility] [id number] Roberth Harper Self 09/24/19 - Unknown Clinical Notes Includes: Clinical Notes from this encounter * Progress note Date Encounter Last Documented by 09/28/2022 Follow Up Last documented on 12/14/2023; 2:30 PM, Margarita Goff PA-C; [facility], [facility] Active Problems & Conditions - History [...]
--- OUTSIDE RECORDS SUMMARY | 2025-06-26 13:18 | XMS_ITS | Referral Summary ---
Author Organization [facility] ([place], [place], [place], [place]) Address [address] [facility] [place] [address] Care Team Providers Care Helminthologist Name Role Phone Unavailable Primary Care Provider [...]
== END 2025-06-26 23:59 | disposition home or self-care (01) ==
LOC: LAB 13:16
PROVIDERS: PCP Internal Medicine; Visit Provider Internal Medicine
DX: B34.9 Viral infection, unspecified (principal)
CPT/HCPCS: 87275; 87276; 87635